=== PATIENT | female | born 1930 | race Caucasian/White ===

== ENCOUNTER 2018-10-23 22:48 | Inpatient (IN) | payer MEDICARE, MEDICAID ==
--- NOTE | 2018-10-23 23:10 | ED Physician Chart ---
ED Chief Complaint/HPI - Patient Information Date Seen:: 10/23/18 Time Seen:: 23:07 Chief Complaint:: agitation History of Present Illness:: 88 yr old female with agitation ED Review of Systems - Review of Systems General/Constitutional: No fever, No chills, No weight loss, No weakness, No diaphoresis, No edema, No loss of appetite Skin: No skin lesions, No rash, No bruising Head: No headache, No light-headedness Eyes: No loss of vision, No pain, No diplopia ENT: No earache, No nasal drainage, No sore throat, No tinnitus Neck: No neck pain, No swelling, No thyromegaly, No stiffness, No mass noted Cardio Vascular: No chest pain, No palpitations, No PND, No orthopnea, No edema Pulmonary: No SOB, No cough, No sputum, No wheezing GI: No nausea, No vomiting, No diarrhea, No pain, No melena, No hematochezia, No constipation, No hematemesis G/U: No dysuria, No frequency, No hematuria Musculoskeletal: No bone or joint pain, No back pain, No muscle pain Endocrine: No polyuria, No polydipsia Psychiatric: No prior psych history, No depression, No anxiety, No suicidal ideation Hematopoietic: No bruising, No lymphadenopathy Allergic/Immuno: No urticaria, No angioedema Neurological: No syncope, No focal symptoms, No weakness, No paresthesia, No headache, No seizure, No dizziness, No confusion, No vertigo ED Past Medical History - Past Medical History Past Medical History: Dementia ED Septic Shock - . Is Septic Shock (SBP<90, OR Lactate>4 mmol\L) present?: No
[2018-10-23 23:40] LABS: % LYMPHOCYTES 39.7 % (20.0-50.0); % MONOCYTES 9.3 % (2.0-10.0); BASOPHILE ABSOLUTE 0.1 Th/cumm (0-0.2); EOSINOPHILE ABSOLUTE 0.3 Th/cmm (0.1-0.4); HEMATOCRIT 32.5 % (41.0-60); HEMOGLOBIN 10.9 gm/dL (12-16); LYMPHOCYTE ABSOLUTE 2.4 Th/cmm (1.5-3.0); MEAN CELL VOLUME 92.8 fl (81-100); MEAN CORPUSCULAR HEMOGLOBIN 31.1 pg (27.0-31.0); MEAN CORPUSCULAR HGB CONC 33.5 pg (28.0-36.0); MEAN PLATELET VOLUME 7.4 fl; MONOCYTE ABSOLUTE 0.6 Th/cmm (0.3-1.0); NEUTROPHILE ABSOLUTE 2.6 Th/cmm (1.8-8.0); PLATELET COUNT 248 Th/cmm (150-400)
[2018-10-24 00:27] LABS: ALB/GLOB RATIO 1.3 (1.0-1.8); ALBUMIN 3.6 gm/dL (3.7-5.3); ALKALINE PHOSPHATASE 51 U/L (34-104); ANION GAP 12.2 (7.0-16.0); BILIRUBIN,TOTAL 0.2 mg/dL (0.3-1.0); BUN - UREA NITROGEN 31 mg/dL (7-25); CALCIUM SERUM 9.3 mg/dL (8.6-10.3); CHLORIDE 106 mEq/L (98-107); CREATININE - SERUM 0.8 mg/dL (0.6-1.2); GLUCOSE 97 mg/dL (70-105); POTASSIUM SERUM 4.2 mEq/L (3.5-5.1); SGOT 9 U/L (13-39); SGPT/ALT 10 U/L (7-52); SODIUM SERUM 139 mEq/L (136-145); TOTAL PROTEIN,SERUM 6.3 gm/dL (6.0-8.3)
[2018-10-24 01:32] VITALS: BP 161/90
[2018-10-24] MEDS ORDERED: Acetaminophen 500 MG TAB PO PRN (01:40)
[2018-10-24 05:32] LABS: CHOLESTEROL 178 mg/dL (<200); HDL -HIGH DENSITY LIPOPROTEIN 74 mg/dL (23-92); TRIGLYCERIDES 73 mg/dL (<150)
--- NOTE | 2018-10-24 08:10 | History & Physical ---
ADMIT DATE: 10/24/2018 DATE OF SERVICE: 10/24/2018 CHIEF COMPLAINT: Agitation. HISTORY OF PRESENT ILLNESS: This is an 88-year-old female who was originally admitted from [place] [facility] [place] and was transferred to [facility] Emergency Room due to increase in agitation and confusion. From the Emergency Room, medical workup was done and the patient was medically cleared, hence the patient was transferred to Psychiatric Unit. REVIEW OF SYSTEMS: GENERAL: This is an 88-year-old female. No fever. No weakness. HEENT: No headache. No dizziness. EYES: No eye pain, no blurring vision. NECK: No neck pain, no nuchal rigidity. CHEST: No chest pain. No palpitation. PULMONARY: No coughing, no shortness of breath. GASTROINTESTINAL: No abdominal pain, no constipation, no diarrhea. MUSCULOSKELETAL: No joint pain. No muscle pain. SOCIAL HISTORY: The patient lives in a [place] [facility] facility prior to hospitalization. PAST SURGICAL HISTORY: Unremarkable. FAMILY HISTORY: Unremarkable. PSYCHIATRIC HISTORY: Includes dementia. PAST MEDICAL HISTORY: Includes iron deficiency anemia, osteoarthritis, hypertension. PHYSICAL EXAMINATION: VITAL SIGNS: Temperature 97.3, heart rate 71, blood pressure 117/53, respirations of 18, 98% on room air. GENERAL: This is an 88-year-old female who appears as stated in no acute distress. HEENT: Head is atraumatic and normocephalic. EYES: Bilateral conjunctivae are clear. Bilateral pupils are equally round and reactive. NECK: Supple. No JVD. CARDIOVASCULAR: S1 and S2, without murmur. PULMONARY: Clear to auscultation. GASTROINTESTINAL: Soft and nontender without guarding. Positive bowel sounds. MUSCULOSKELETAL: No clubbing. No cyanosis noted. ASSESSMENT: 1. Psychosis. 2. Dementia. 3. Hypertension. 4. Osteoarthritis. 5. Iron deficiency anemia. PLAN: We will admit the patient to Psychiatric Unit. We will follow up with a psychiatrist to monitor the patient's condition and behavior. We will do medication reconciliation accordingly. Treatment plans were discussed with the patient's nurse. Treatment plans were discussed with Dr. John. JOB# [id number]
[2018-10-24] MEDS ORDERED: Non-Formulary Item 1 EA (Cranberry Fruit Concentrate [Cranberry] 450 MG) PO SCH (09:00)
[2018-10-24] MEDS: Benztropine 1 MG TAB PO SCH (09:33)
[2018-10-24] MEDS: Calcium Carb/Vit D 500 mg/200 U Tab PO SCH ×2 (09:33→16:15)
[2018-10-24] MEDS: Ferrous Sulfate 325 MG TAB PO SCH ×2 (09:34→16:15)
[2018-10-24] MEDS: Multivitamin w/ Minerals Tab PO SCH (09:35)
--- NOTE | 2018-10-24 09:35 | Psychiatric Evaluation ---
DATE OF SERVICE: 10/24/2018 DATE OF ADMISSION: 10/24/2018 REASON FOR ADMISSION: The patient was admitted for exacerbation of her psychotic symptoms and behavior. HISTORY OF PRESENT ILLNESS: The patient is an 88-year-old female who is well known to this publicity writer. The patient has been followed by this publicity writer for many years. The patient had prior hospitalization here before where the patient was very psychotic. The patient refused to take her medication because she believes that she is not sick and does not need any medication. The patient has been a resident of [facility] for many years. The patient has been doing reasonably well all these years on Prolixin. On the day of the admission, the staff called to report that the patient's condition has deteriorated where the patient has more episodes of yelling and screaming and reacting to her psychosis. Therefore, the staff requested for inpatient treatment to get her condition under control. Attempted to interview the patient while the patient was lying on her bed. The patient was heard yelling and screaming before entering the room. While trying to interview her, a female staff enter the room, the patient started yelling at her. The patient does not believe that the staff is a nurse. The patient has pressured speech as well as disorganized thought. The patient did not recognize this publicity writer. The patient stated that this publicity writer has another twin that is outside the room. The patient stated that this publicity writer is not her doctor. Since the patient is very psychotic at this time; therefore, unable to obtain much information from the patient. The patient has been guarded and not wanting to respond to questions. The patient would not give her name, age, or date. The patient would not say where she has been living prior to coming here. The patient would not say what happened, why she has to be here. PAST PSYCHIATRIC HISTORY: The patient has history of schizophrenia, chronic, paranoid type. SURGICAL HISTORY: Unable to obtain information. MEDICAL HISTORY: Polyosteoarthritis, essential hypertension, dysphagia, peripheral vascular disease. MEDICATIONS: Currently the patient is on Tylenol, Cogentin, calcium with vitamin C, Depakote 375 mg b.i.d., Colace, ferrous sulfate, Prolixin 10 mg p.o. at bedtime, Lamictal, Lopressor. SOCIAL HISTORY: Unable to obtain information at this time. MENTAL STATUS EXAMINATION: The patient appeared appropriate for stated age. The patient was guarded, uncooperative. The patient was easily agitated, yelling and screaming, and with pressured speech. It was difficult to understand what the patient was saying. MEMORY: Unable to assess the patient for immediate, short-term and long-term memory due to the patient being uncooperative with the interview. Unable to get the patient to interpret any of the proverbs. INSIGHTS: POOR jUDGMENT: Impaired Unable to assess the patient for concentration because the patient was uncooperative. Unable to assess the patient for orientation. The patient denied any auditory or visual hallucination nor delusion. DIAGNOSTIC IMPRESSION: AXIS I: Schizophrenia, chronic, paranoid type, in acute exacerbation. AXIS II: Deferred. AXIS III: Polyosteoarthritis, essential hypertension, dysphagia, peripheral vascular disease. AXIS IV: Medical and mental illnesses. AXIS V: Current 10, past year 25. PLAN: We will increase Prolixin to 10 mg p.o. q. 12 hours and monitor the patient's response to the medication. ESTIMATED LENGTH OF STAY: 7-10 days. DISCHARGE CRITERIA: Include improvement of her condition with continued compliance with medications and care. JOB# [id number] CANDACE
[2018-10-24] MEDS ORDERED: FLUPHENAZINE HCL 10 MG PO SCH (21:00)
[2018-10-25] MEDS: Benztropine 1 MG TAB PO SCH (10:00)
[2018-10-25] MEDS: Ferrous Sulfate 325 MG TAB PO SCH ×2 (10:00→16:28)
[2018-10-25] MEDS: Calcium Carb/Vit D 500 mg/200 U Tab PO SCH ×2 (10:00→16:28)
[2018-10-25] MEDS: Multivitamin w/ Minerals Tab PO SCH (10:00)
[2018-10-25] MEDS: FLUPHENAZINE HCL 2.5 MG/ML IM SCH (13:57)
--- NOTE | 2018-10-25 16:55 | Internal Medicine Prog Note ---
Internal Medicine Subjective - Subjective Patient seen and examined:: with staff Patient is:: awake, non-interactive Per staff patient has:: no adverse event Internal Medicine Objective - Results Result Diagrams: 10/23/18 23:25 10/23/18 23:25 Recent Labs: Laboratory Last Values WBC 6.0 Th/cmm (4.8-10.8) 10/23/18 23: RBC 3.50 Mil/cmm (3.80-5.20) L 10/23/18 23: Hgb 10.9 gm/dL (12-16) L 10/23/18 23:25 Hct 32.5 % (41.0-60) L 10/23/18 23: MCV 92.8 fl (81-100) 10/23/18 23: MCH 31.1 pg (27.0-31.0) H 10/23/18 23: MCHC Differential 33.5 pg (28.0-36.0) 10/23/18: RDW 13.0 % (11.5-20.0) 10/23/18 23: Plt Count 248 Th/cmm (150-400) 10/23/18 23:25 MPV 7.4 fl 10/23/18 23:25 Neutrophils % 45.0 % (40.0-80.0) 10/23/18 23: Lymphocytes % 39.7 % (20.0-50.0) 10/23/18 23: Monocytes % 9.3 % (2.0-10.0) 10/23/18 23: Eosinophils % 5.0 % (0.0-5.0) 10/23/18 23: Basophils % 1.0 % (0.0-2.0) 10/23/18 23:25 Sodium 139 mEq/L (136-145) 10/23/18 23:25 Potassium 4.2 mEq/L (3.5-5.1) 10/23/18 23:25 Chloride 106 mEq/L (98-107) 10/23/18 23:25 Carbon Dioxide 25.0 mEq/L (21.0-31.0) 10/23/18 23:25 Anion Gap 12.2 (7.0-16.0) 10/23/18 23:25 BUN 31 mg/dL (7-25) H 10/23/18 23:25 Creatinine 0.8 mg/dL (0.6-1.2) 10/23/18 23:25 Est GFR ( Amer) TNP 10/23/18 23:25 Est GFR (Non-Af Amer) TNP 10/23/18 23:25 BUN/Creatinine Ratio 38.8 10/23/18 23:25 Glucose 97 mg/dL (70-105) 10/23/18 23:25 Calcium 9.3 mg/dL (8.6-10.3) 10/23/18 23:25 Total Bilirubin 0.2 mg/dL (0.3-1.0) L 10/23/18 23:25 AST 9 U/L (13-39) L 10/23/18 23:25 ALT 10 U/L (7-52) 10/23/18 23:25 Alkaline Phosphatase 51 U/L (34-104) 10/23/18 23:25 Total Protein 6.3 gm/dL (6.0-8.3) 10/23/18 23:25 Albumin 3.6 gm/dL (3.7-5.3) L 10/23/18 23:25 Globulin 2.7 gm/dL 10/23/18 23:25 Albumin/Globulin Ratio 1.3 (1.0-1.8) 10/23/18 23:25 Triglycerides 73 mg/dL (<150) 10/24/18 01:45 Cholesterol 178 mg/dL (<200) 10/24/18 01:45 LDL Cholesterol Direct 88 mg/dL (75-193) 10/24/18 01:45 HDL Cholesterol 74 mg/dL (23-92) 10/24/18 01:45 - Physical Exam Vitals and I&O: Vital Signs Temp 96.8 F 10/25/18 14:00 Pulse 84 10/25/18 14:00 Resp 20 10/25/18 14:00 BP 133/56 10/25/18 14:00 Pulse Ox 97 10/25/18 14:00 Intake & Output 10/24/18 10/25/18 10/25/18 18:59 06:59 18:59 Intake Total 400 240 Balance 400 240 Intake: Oral 400 240 Other: # Voids 2 2 # Bowel Movements 1 0 Active Medications: Current Medications Acetaminophen (Tylenol) 650 mg PO Q4HR PRN PRN Reason: Pain or Fever >101 Stop: 12/23/18 01:39 Acetaminophen (Tylenol Extra Strength) 1,000 mg PO Q4HR PRN PRN Reason: Pain (Moderate) Stop: 12/23/18 01:39 Benztropine Mesylate (Cogentin) 3 mg PO DAILY [facility] Stop: 12/23/18 08:59 Last Admin: 10/25/18 10:00 Dose: Not Given Calcium/Vitamin D (Oscal W/Vitamin D) 1 tab PO BID [facility] Stop: 12/23/18 08:59 Last Admin: 10/25/18 16:28 Dose: Not Given Divalproex Sodium (Depakote Sprinkle) 375 mg PO BID [facility]; Protocol Stop: 12/23/18 08:59 Last Admin: 10/25/18 16:28 Dose: Not Given Docusate Sodium (Colace) 250 mg PO DAILY [facility] Stop: 12/23/18 08:59 Last Admin: 10/25/18 10:00 Dose: Not Given Ferrous Sulfate (Iron) 325 mg PO BID [facility] Stop: 12/23/18 08:59 Last Admin: 10/25/18 16:28 Dose: Not Given Fluphenazine Decanoate (Prolixin Deconate) 25 mg IM [id number] [facility]; Protocol Stop: 12/31/18 08:44 Fluphenazine HCl (Prolixin) 5 mg IM DAILY [facility]; Protocol Stop: 11/01/18 08:59 Last Admin: 10/25/18 13:57 Dose: 5 mg Lamotrigine (Lamictal) 25 mg PO DAILY [facility]; Protocol Stop: 12/23/18 08:59 Last Admin: 10/25/18 10:00 Dose: Not Given Metoprolol Tartrate (Lopressor) 50 mg PO DAILY [facility] Stop: 12/23/18 08:59 Last Admin: 10/25/18 10:35 Dose: Not Given General: demented, other (awake, non-verbal) HEENT: NC/AT Neck: Supple, No JVD Lungs: other (no acute respiratory distress) Cardiovascular: Normal S1, Normal S2 Abdomen: soft - Procedures Procedures: Procedures Procedure Code Date OTHER GROUP THERAPY 94.44 03/02/10 RECREATIONAL THERAPY 93.81 03/02/10 Internal Medicine Assmt/Plan - Assessment Assessment: #Psychosis #Dementia #HTN #OA #Iron deficiency Anemia - Plan Plan: Continue to keep patient Inpatient Pshychiatric Unit Monitor I/Os Monitor VS Monitor patient's condition and behavior. Continue current treatment. Continue to follow up Psych recs.
--- NOTE | 2018-10-25 21:49 | Progress Notes ---
DATE: 10/25/2018 SUBJECTIVE: The patient is sitting on the side of the bed, eating her breakfast. The patient was calmer this morning; however, her speech continued to be pressured and disorganized, difficult to understand. The patient reported that she is eating well. The patient started rambling, not able to follow what she was saying. The patient reported that she slept okay. When asked if she has been taking her medication, the patient started rambling, unable to get a coherent response to whether she has been taking her medications or not. OBJECTIVE: The patient continued to have pressured speech and disorganized thought. The patient appeared to be less agitated and more cooperative this morning. The staff reported that the patient had refused all her medications yesterday. The patient slept okay. The patient continued to be guarded and suspicious. ASSESSMENT: Schizophrenia, chronic paranoid type, in acute exacerbation. PLAN: We will change Prolixin from p.o. to IM and will eventually switch the patient back to Prolixin Decanoate. JOB# [id number]
--- NOTE | 2018-10-26 10:14 | Internal Medicine Prog Note ---
Internal Medicine Subjective - Subjective Service Date: 10/26/18 Patient seen and examined:: with staff Patient is:: awake, non-interactive, agitated Patient Complaints of:: other (Hx of Psychosis, Dementia, Schizophrenia.) Per staff patient has:: no adverse event, no episodes of fall Internal Medicine Objective - Results Result Diagrams: 10/23/18 23:25 10/23/18 23:25 Recent Labs: Laboratory Last Values WBC 6.0 Th/cmm (4.8-10.8) 10/23/18 23: RBC 3.50 Mil/cmm (3.80-5.20) L 10/23/18 23:25 Hgb 10.9 gm/dL (12-16) L 10/23/18 23:25 Hct 32.5 % (41.0-60) L 10/23/18 23:25 MCV 92.8 fl (81-100) 10/23/18 23: MCH 31.1 pg (27.0-31.0) H 10/23/18: MCHC Differential 33.5 pg (28.0-36.0) 10/23/18 23:25 RDW 13.0 % (11.5-20.0) 10/23/18 23: Plt Count 248 Th/cmm (150-400) 10/23/18 23:25 MPV 7.4 fl 10/23/18 23:25 Neutrophils % 45.0 % (40.0-80.0) 10/23/18 23:25 Lymphocytes % 39.7 % (20.0-50.0) 10/23/18 23: Monocytes % 9.3 % (2.0-10.0) 10/23/18 23:25 Eosinophils % 5.0 % (0.0-5.0) 10/23/18 23: Basophils % 1.0 % (0.0-2.0) 10/23/18 23:25 Sodium 139 mEq/L (136-145) 10/23/18 23:25 Potassium 4.2 mEq/L (3.5-5.1) 10/23/18 23:25 Chloride 106 mEq/L (98-107) 10/23/18 23:25 Carbon Dioxide 25.0 mEq/L (21.0-31.0) 10/23/18 23:25 Anion Gap 12.2 (7.0-16.0) 10/23/18 23:25 BUN 31 mg/dL (7-25) H 10/23/18 23:25 Creatinine 0.8 mg/dL (0.6-1.2) 10/23/18 23:25 Est GFR ( Amer) TNP 10/23/18 23:25 Est GFR (Non-Af Amer) TNP 10/23/18 23:25 BUN/Creatinine Ratio 38.8 10/23/18 23:25 Glucose 97 mg/dL (70-105) 10/23/18 23:25 Calcium 9.3 mg/dL (8.6-10.3) 10/23/18 23:25 Total Bilirubin 0.2 mg/dL (0.3-1.0) L 10/23/18 23:25 AST 9 U/L (13-39) L 10/23/18 23:25 ALT 10 U/L (7-52) 10/23/18 23:25 Alkaline Phosphatase 51 U/L (34-104) 10/23/18 23:25 Total Protein 6.3 gm/dL (6.0-8.3) 10/23/18 23:25 Albumin 3.6 gm/dL (3.7-5.3) L 10/23/18 23:25 Globulin 2.7 gm/dL 10/23/18 23:25 Albumin/Globulin Ratio 1.3 (1.0-1.8) 10/23/18 23:25 Triglycerides 73 mg/dL (<150) 10/24/18 01:45 Cholesterol 178 mg/dL (<200) 10/24/18 01:45 LDL Cholesterol Direct 88 mg/dL (75-193) 10/24/18 01:45 HDL Cholesterol 74 mg/dL (23-92) 10/24/18 01:45 - Physical Exam Vitals and I&O: Vital Signs Temp 0 F 10/26/18 06:20 Pulse 90 10/25/18 21:36 Resp 20 10/25/18 21:36 BP 151/68 10/25/18 21:36 Pulse Ox 96 10/25/18 21:36 Intake & Output 10/25/18 10/26/18 10/26/18 18:59 06:59 18:59 Intake Total 1440 120 Balance 1440 120 Intake: Oral 1080 120 Other 360 Other: # Voids 4 3 # Bowel Movements 0 0 Active Medications: Current Medications Acetaminophen (Tylenol) 650 mg PO Q4HR PRN PRN Reason: Pain or Fever >101 Stop: 12/23/18 01:39 Acetaminophen (Tylenol Extra Strength) 1,000 mg PO Q4HR PRN PRN Reason: Pain (Moderate) Stop: 12/23/18 01:39 Benztropine Mesylate (Cogentin) 3 mg PO DAILY [facility] Stop: 12/23/18 08:59 Last Admin: 10/25/18 10:00 Dose: Not Given Calcium/Vitamin D (Oscal W/Vitamin D) 1 tab PO BID [facility] Stop: 12/23/18 08:59 Last Admin: 10/25/18 16:28 Dose: Not Given Divalproex Sodium (Depakote Sprinkle) 375 mg PO BID [facility]; Protocol Stop: 12/23/18 08:59 Last Admin: 10/25/18 16:28 Dose: Not Given Docusate Sodium (Colace) 250 mg PO DAILY [facility] Stop: 12/23/18 08:59 Last Admin: 10/25/18 10:00 Dose: Not Given Ferrous Sulfate (Iron) 325 mg PO BID [facility] Stop: 12/23/18 08:59 Last Admin: 10/25/18 16:28 Dose: Not Given Fluphenazine Decanoate (Prolixin Deconate) 25 mg IM [id number] [facility]; Protocol Stop: 12/31/18 08:44 Fluphenazine HCl (Prolixin) 5 mg IM DAILY [facility]; Protocol Stop: 11/01/18 08:59 Last Admin: 10/25/18 13:57 Dose: 5 mg Lamotrigine (Lamictal) 25 mg PO DAILY [facility]; Protocol Stop: 12/23/18 08:59 Last Admin: 10/25/18 10:00 Dose: Not Given Metoprolol Tartrate (Lopressor) 50 mg PO DAILY [facility] Stop: 12/23/18 08:59 Last Admin: 10/25/18 10:35 Dose: Not Given Physical Exam: 88 y/o female patient has been agitated and has hx of Psychosis, Dementia, Schizophrenia, Htn, OA and was found to have Anemia. General: weak, demented, other (awake, non-verbal) HEENT: NC/AT Neck: Supple, No JVD Lungs: other (no acute respiratory distress) Cardiovascular: Normal S1, Normal S2 Abdomen: soft, non-tender Extremities: clear Neurological: other (Altered mental status.) - Procedures Procedures: Procedures Procedure Code Date OTHER GROUP THERAPY 94.44 03/02/10 RECREATIONAL THERAPY 93.81 03/02/10 Internal Medicine Assmt/Plan - Assessment Assessment: Psychosis. Iron-deficiency Anemia. HTN. Schizophrenia. Dementia. OA. - Plan Plan: Continuation of care. Monitor Vitals and Labs. Continue present meds as directed. Fall precaution. Pain management. Psych management per psych. Continue present care management. Nutritional Asmnt/Malnutr-PDOC - Dietary Evaluation Malnutrition Findings (Please click <Entered> for more info): see orders.
[2018-10-26] MEDS: Benztropine 1 MG TAB PO SCH (10:52)
[2018-10-26] MEDS: Ferrous Sulfate 325 MG TAB PO SCH ×2 (10:52→17:21)
[2018-10-26] MEDS: Calcium Carb/Vit D 500 mg/200 U Tab PO SCH ×2 (10:52→17:21)
[2018-10-26] MEDS: FLUPHENAZINE HCL 2.5 MG/ML IM SCH (10:52)
[2018-10-26] MEDS: Multivitamin w/ Minerals Tab PO SCH (10:53)
--- NOTE | 2018-10-26 16:55 | Progress Notes ---
DATE: 10/26/2018 SUBJECTIVE: The patient is resting in bed with her eyes closed. The patient responded to verbal stimuli. The patient appeared calmer and her speech appeared to be more normal, not pressured, disorganized like yesterday. The patient indicated that she had her breakfast and that she slept okay. Suddenly the patient stated "I am a prisoner." When asked what she meant by that, she pointed to this music writer and said that she is this music writer's prisoner. When asked if her family has been here to visit, the patient shook her head. The patient suddenly said that she is 7 years old. OBJECTIVE: The patient appeared to be calmer today with more normal speech. However, the patient is not very verbal. The patient continued to be delusional. Staff reported that the patient has been doing better, less agitated and her speech appeared to be more normal, not rambling and pressured like the last 2 days. ASSESSMENT: Schizophrenia, chronic paranoid type. PLAN: We will continue the patient on Prolixin IM and eventually switch to Prolixin Decanoate. If the patient continued to be doing well on current Prolixin IM, consider discharging the patient in the next 3-4 days to continue with Prolixin IM at the facility. JOB# [id number]
--- NOTE | 2018-10-26 23:13 | Consultation ---
DATE OF CONSULTATION: 10/26/2018 REFERRING PHYSICIAN: Moi Merino MD TYPE OF CONSULTATION: Psychology. HISTORY OF PRESENT ILLNESS: The patient is an 88-year-old female. The following is by record review and by the patient's self report. The patient is seen and evaluated. Case is discussed with staff. The patient is being admitted due to exacerbation of psychotic symptoms and noncompliance with medication. The patient is known to this fiction and nonfiction prose writer from previous hospitalizations. The patient has had similar reasons for her previous admissions i.e. noncompliance with care as well as episodes of yelling and screaming. The staff at her facility reports that the patient has been yelling at the staff and that the patient was reporting that the doctors that are treating her are not her doctors. The patient presents as possibly responding to internal stimuli. The patient did not answer questions about experiencing suicidal ideation, plan, or intention. The patient is generally guarded and not very responsive to the clinical questions or providing much information. PAST MEDICAL HISTORY: Please see history and physical by Dr. John. PAST PSYCHIATRIC HISTORY: The patient has a long history of schizophrenia, chronic paranoid type. The patient is under the care of a psychiatrist at her placement. The patient has had multiple previous hospitalizations. SUBSTANCE ABUSE HISTORY: The patient declined to answer any of these questions. PSYCHOSOCIAL HISTORY: The patient did not answer questions about occupational or educational history or voodoo affiliation. She did not answer questions about family relationships. The patient did state that she has a son, Javon, who is involved in her care and someone named Bibiana. The patient did not answer the question whether these are her children or what relationship she has with them other friends or family involved in her care. The patient did not answer questions about history of physical or sexual abuse. The patient did not answer the question about current legal problems. She is a resident of [facility]. MENTAL STATUS EXAMINATION: The patient appears to be her stated age. The patient's attitude is guarded and uncooperative. Speech is delayed and at times pressured and loud. The patient was not responding relevantly to the clinical questions. Eye contact is avoidant. Mood is irritable. Affect is constricted. Thought process shows to be confused and she is responding to internal stimuli. The patient did not answer questions about experiencing auditory or visual hallucinations or delusions. There is evidence of paranoid ideation present. The patient did not answer the question about experiencing suicidal ideation with a plan or intention or a wish to . The patient's behavior has been easily agitated with yelling episodes and difficult to deescalate. Impulse control is inadequate. Concentration is impaired. Sensorium is alert and oriented to self only. The patient did not participate in the memory assessment. The patient did not participate in the interpretation of proverbs. Insight is impaired. Judgment is impaired. DIAGNOSTIC IMPRESSION: AXIS I: History of schizophrenia, chronic paranoid type, in acute exacerbation. AXIS II: Deferred. AXIS III: Per Dr. John. TREATMENT PLAN: The patient has been seen by Dr. Merino for psychiatric evaluation and for the management of the patient's psychotropic medications. According to the the attending psychiatrist, the patient was started on Prolixin and is being monitored in response to the medication. We will provide supportive psychotherapy to include reality orientation, differentiation, and integration. We will provide motivational enhancement for the patient to become compliant and stay compliant with all aspects of her care and treatment. We will provide de-escalation and limit setting as well as cognitive and behavioral redirection. We will encourage the patient to demonstrate emotional and self-regulation and to follow through with staff direction. We will encourage the patient to verbalize her concerns versus acting out. We will provide coping strategies for phase of life issues as well as for chronic severe mental illness. Thank you, Dr. Merino for this consult and the opportunity to participate in this patient's care. JOB# [id number] CANDACE
[2018-10-27] MEDS: Calcium Carb/Vit D 500 mg/200 U Tab PO SCH ×2 (08:30→17:10)
[2018-10-27] MEDS: Benztropine 1 MG TAB PO SCH (08:30)
[2018-10-27] MEDS: Ferrous Sulfate 325 MG TAB PO SCH ×2 (08:30→17:10)
[2018-10-27] MEDS: Multivitamin w/ Minerals Tab PO SCH (08:30)
[2018-10-27] MEDS: FLUPHENAZINE HCL 2.5 MG/ML IM SCH (10:03)
--- NOTE | 2018-10-27 19:26 | Internal Medicine Prog Note ---
Internal Medicine Subjective - Subjective Service Date: 10/27/18 Patient is:: awake, non-interactive, agitated Patient Complaints of:: other (Hx of Psychosis, Dementia, Schizophrenia.) Per staff patient has:: no adverse event, no episodes of fall Internal Medicine Objective - Results Result Diagrams: 10/23/18 23:25 10/23/18 23:25 Recent Labs: Laboratory Last Values WBC 6.0 Th/cmm (4.8-10.8) 10/23/18 23: RBC 3.50 Mil/cmm (3.80-5.20) L 10/23/18 23:25 Hgb 10.9 gm/dL (12-16) L 10/23/18 23:25 Hct 32.5 % (41.0-60) L 10/23/18 23:25 MCV 92.8 fl (81-100) 10/23/18 23:25 MCH 31.1 pg (27.0-31.0) H 10/23/18 23: MCHC Differential 33.5 pg (28.0-36.0) 10/23/18 23:25 RDW 13.0 % (11.5-20.0) 10/23/18 23: Plt Count 248 Th/cmm (150-400) 10/23/18 23:25 MPV 7.4 fl 10/23/18 23:25 Neutrophils % 45.0 % (40.0-80.0) 10/23/18 23:25 Lymphocytes % 39.7 % (20.0-50.0) 10/23/18 23: Monocytes % 9.3 % (2.0-10.0) 10/23/18 23:25 Eosinophils % 5.0 % (0.0-5.0) 10/23/18 23: Basophils % 1.0 % (0.0-2.0) 10/23/18 23:25 Sodium 139 mEq/L (136-145) 10/23/18 23:25 Potassium 4.2 mEq/L (3.5-5.1) 10/23/18 23:25 Chloride 106 mEq/L (98-107) 10/23/18 23:25 Carbon Dioxide 25.0 mEq/L (21.0-31.0) 10/23/18 23:25 Anion Gap 12.2 (7.0-16.0) 10/23/18 23:25 BUN 31 mg/dL (7-25) H 10/23/18 23:25 Creatinine 0.8 mg/dL (0.6-1.2) 10/23/18 23:25 Est GFR ( Amer) TNP 10/23/18 23:25 Est GFR (Non-Af Amer) TNP 10/23/18 23:25 BUN/Creatinine Ratio 38.8 10/23/18 23:25 Glucose 97 mg/dL (70-105) 10/23/18 23:25 Calcium 9.3 mg/dL (8.6-10.3) 10/23/18 23:25 Total Bilirubin 0.2 mg/dL (0.3-1.0) L 10/23/18 23:25 AST 9 U/L (13-39) L 10/23/18 23:25 ALT 10 U/L (7-52) 10/23/18 23:25 Alkaline Phosphatase 51 U/L (34-104) 10/23/18 23:25 Total Protein 6.3 gm/dL (6.0-8.3) 10/23/18 23:25 Albumin 3.6 gm/dL (3.7-5.3) L 10/23/18 23:25 Globulin 2.7 gm/dL 10/23/18 23:25 Albumin/Globulin Ratio 1.3 (1.0-1.8) 10/23/18 23:25 Triglycerides 73 mg/dL (<150) 10/24/18 01:45 Cholesterol 178 mg/dL (<200) 10/24/18 01:45 LDL Cholesterol Direct 88 mg/dL (75-193) 10/24/18 01:45 HDL Cholesterol 74 mg/dL (23-92) 10/24/18 01:45 - Physical Exam Vitals and I&O: Vital Signs Temp 0 F 10/27/18 06:26 Pulse 87 10/26/18 20:27 Resp 19 10/27/18 08:00 BP 147/76 10/26/18 20:27 Pulse Ox 96 10/26/18 20:27 Intake & Output 10/27/18 10/27/18 10/28/18 06:59 18:59 06:59 Intake Total 240 Balance 240 Intake: Oral 240 Other: # Voids 3 2 # Bowel Movements 0 0 Active Medications: Current Medications Acetaminophen (Tylenol) 650 mg PO Q4HR PRN PRN Reason: Pain or Fever >101 Stop: 12/23/18 01:39 Acetaminophen (Tylenol Extra Strength) 1,000 mg PO Q4HR PRN PRN Reason: Pain (Moderate) Stop: 12/23/18 01:39 Benztropine Mesylate (Cogentin) 3 mg PO DAILY [facility] Stop: 12/23/18 08:59 Last Admin: 10/27/18 08:30 Dose: Not Given Calcium/Vitamin D (Oscal W/Vitamin D) 1 tab PO BID [facility] Stop: 12/23/18 08:59 Last Admin: 10/27/18 17:10 Dose: Not Given Divalproex Sodium (Depakote Sprinkle) 375 mg PO BID [facility]; Protocol Stop: 12/23/18 08:59 Last Admin: 10/27/18 17:10 Dose: Not Given Docusate Sodium (Colace) 250 mg PO DAILY [facility] Stop: 12/23/18 08:59 Last Admin: 10/27/18 08:30 Dose: Not Given Ferrous Sulfate (Iron) 325 mg PO BID [facility] Stop: 12/23/18 08:59 Last Admin: 10/27/18 17:10 Dose: Not Given Fluphenazine Decanoate (Prolixin Deconate) 25 mg IM [id number] [facility]; Protocol Stop: 12/31/18 08:44 Fluphenazine HCl (Prolixin) 10 mg IM DAILY [facility]; Protocol Stop: 11/03/18 08:59 Last Admin: 10/27/18 10:03 Dose: Not Given Lamotrigine (Lamictal) 25 mg PO DAILY [facility]; Protocol Stop: 12/23/18 08:59 Last Admin: 10/27/18 08:29 Dose: Not Given Metoprolol Tartrate (Lopressor) 50 mg PO DAILY [facility] Stop: 12/23/18 08:59 Last Admin: 10/27/18 08:30 Dose: Not Given General: weak, demented, other (awake, non-verbal) HEENT: NC/AT Neck: Supple, No JVD Lungs: other (no acute respiratory distress) Cardiovascular: Normal S1, Normal S2 Abdomen: soft, non-tender Extremities: clear Neurological: other (Altered mental status.) - Procedures Procedures: Procedures Procedure Code Date OTHER GROUP THERAPY 94.44 03/02/10 RECREATIONAL THERAPY 93.81 03/02/10 Internal Medicine Assmt/Plan - Assessment Assessment: #Psychosis #Dementia #HTN #OA #Iron deficiency Anemia - Plan Plan: CPM
--- NOTE | 2018-10-27 23:36 | Progress Notes ---
DATE: 10/27/2018 SUBJECTIVE: The patient was up sitting in the wheelchair in front of her room. As soon as the patient saw this typewriter aligner, she acted happy. She stated that she wanted to get out of here. When asked where to, where was she prior to coming here, the patient could not give the name of the facility. When asked what city that facility is at, the patient stated this city. The patient became more agitated when asked if she had her breakfast. The patient stated "No". The patient stated that she does not want to be questioned anymore. The patient stated that she just wanted to get out of here. When I asked if her family came to see her, the patient stated no. When asked again if she would eat her breakfast before she leaves this place, the patient stated no. OBJECTIVE: The patient is more easily agitated this morning. The patient continued to be quite delusional. The staff reported that the patient called her "Devil". The patient refused to eat this morning. Staff reported that the patient slept about 4 hours, but the rest of the time she just stayed in bed. ASSESSMENT: Schizophrenia, chronic paranoid type. PLAN: I will increase Prolixin IM to 10 mg q.p.m. for the next 5 days before giving the Prolixin Decanoate. We will monitor the patient's response to the increased dose of Prolixin IM. JOB# [id number] MTDD
[2018-10-28] MEDS: FLUPHENAZINE HCL 2.5 MG/ML IM SCH (08:58)
[2018-10-28] MEDS: Benztropine 1 MG TAB PO SCH (09:24)
[2018-10-28] MEDS: Calcium Carb/Vit D 500 mg/200 U Tab PO SCH ×2 (09:24→17:41)
[2018-10-28] MEDS: Ferrous Sulfate 325 MG TAB PO SCH ×2 (09:25→17:42)
[2018-10-28] MEDS: Multivitamin w/ Minerals Tab PO SCH (09:25)
--- NOTE | 2018-10-28 12:59 | Internal Medicine Prog Note ---
Internal Medicine Subjective - Subjective Service Date: 10/28/18 Patient seen and examined:: with staff Patient is:: awake, non-interactive, agitated Patient Complaints of:: other (Hx of Psychosis, Dementia, Schizophrenia.) Per staff patient has:: no adverse event, no episodes of fall Internal Medicine Objective - Results Result Diagrams: 10/23/18 23:25 10/23/18 23:25 Recent Labs: Laboratory Last Values WBC 6.0 Th/cmm (4.8-10.8) 10/23/18 23: RBC 3.50 Mil/cmm (3.80-5.20) L 10/23/18 23:25 Hgb 10.9 gm/dL (12-16) L 10/23/18 23:25 Hct 32.5 % (41.0-60) L 10/23/18 23:25 MCV 92.8 fl (81-100) 10/23/18 23: MCH 31.1 pg (27.0-31.0) H 10/23/18: MCHC Differential 33.5 pg (28.0-36.0) 10/23/18 23:25 RDW 13.0 % (11.5-20.0) 10/23/18 23: Plt Count 248 Th/cmm (150-400) 10/23/18 23:25 MPV 7.4 fl 10/23/18 23:25 Neutrophils % 45.0 % (40.0-80.0) 10/23/18 23:25 Lymphocytes % 39.7 % (20.0-50.0) 10/23/18 23: Monocytes % 9.3 % (2.0-10.0) 10/23/18 23:25 Eosinophils % 5.0 % (0.0-5.0) 10/23/18 23: Basophils % 1.0 % (0.0-2.0) 10/23/18 23:25 Sodium 139 mEq/L (136-145) 10/23/18 23:25 Potassium 4.2 mEq/L (3.5-5.1) 10/23/18 23:25 Chloride 106 mEq/L (98-107) 10/23/18 23:25 Carbon Dioxide 25.0 mEq/L (21.0-31.0) 10/23/18 23:25 Anion Gap 12.2 (7.0-16.0) 10/23/18 23:25 BUN 31 mg/dL (7-25) H 10/23/18 23:25 Creatinine 0.8 mg/dL (0.6-1.2) 10/23/18 23:25 Est GFR ( Amer) TNP 10/23/18 23:25 Est GFR (Non-Af Amer) TNP 10/23/18 23:25 BUN/Creatinine Ratio 38.8 10/23/18 23:25 Glucose 97 mg/dL (70-105) 10/23/18 23:25 Calcium 9.3 mg/dL (8.6-10.3) 10/23/18 23:25 Total Bilirubin 0.2 mg/dL (0.3-1.0) L 10/23/18 23:25 AST 9 U/L (13-39) L 10/23/18 23:25 ALT 10 U/L (7-52) 10/23/18 23:25 Alkaline Phosphatase 51 U/L (34-104) 10/23/18 23:25 Total Protein 6.3 gm/dL (6.0-8.3) 10/23/18 23:25 Albumin 3.6 gm/dL (3.7-5.3) L 10/23/18 23:25 Globulin 2.7 gm/dL 10/23/18 23:25 Albumin/Globulin Ratio 1.3 (1.0-1.8) 10/23/18 23:25 Triglycerides 73 mg/dL (<150) 10/24/18 01:45 Cholesterol 178 mg/dL (<200) 10/24/18 01:45 LDL Cholesterol Direct 88 mg/dL (75-193) 10/24/18 01:45 HDL Cholesterol 74 mg/dL (23-92) 10/24/18 01:45 - Physical Exam Vitals and I&O: Vital Signs Temp 0 F 10/27/18 20:00 Pulse 87 10/26/18 20:27 Resp 18 10/27/18 20:00 BP 147/76 10/26/18 20:27 Pulse Ox 96 10/26/18 20:27 Intake & Output 10/27/18 10/28/18 10/28/18 18:59 06:59 18:59 Intake Total 300 Balance 300 Intake: Oral 300 Other: # Voids 2 1 # Bowel Movements 0 0 Active Medications: Current Medications Acetaminophen (Tylenol) 650 mg PO Q4HR PRN PRN Reason: Mild Pain or Fever >101 Stop: 12/23/18 01:39 Acetaminophen (Tylenol Extra Strength) 1,000 mg PO Q4HR PRN PRN Reason: Pain (Moderate) Stop: 12/23/18 01:39 Benztropine Mesylate (Cogentin) 3 mg PO DAILY [facility] Stop: 12/23/18 08:59 Last Admin: 10/28/18 09:24 Dose: Not Given Calcium/Vitamin D (Oscal W/Vitamin D) 1 tab PO BID [facility] Stop: 12/23/18 08:59 Last Admin: 10/28/18 09:24 Dose: Not Given Divalproex Sodium (Depakote Sprinkle) 375 mg PO BID [facility]; Protocol Stop: 12/23/18 08:59 Last Admin: 10/28/18 09:24 Dose: Not Given Docusate Sodium (Colace) 250 mg PO DAILY [facility] Stop: 12/23/18 08:59 Last Admin: 10/28/18 09:24 Dose: Not Given Ferrous Sulfate (Iron) 325 mg PO BID [facility] Stop: 12/23/18 08:59 Last Admin: 10/28/18 09:25 Dose: Not Given Fluphenazine Decanoate (Prolixin Deconate) 25 mg IM [id number] [facility]; Protocol Stop: 12/31/18 08:44 Fluphenazine HCl (Prolixin) 10 mg IM DAILY [facility]; Protocol Stop: 11/03/18 08:59 Last Admin: 10/28/18 08:58 Dose: 10 mg Lamotrigine (Lamictal) 25 mg PO DAILY [facility]; Protocol Stop: 12/23/18 08:59 Last Admin: 10/28/18 09:25 Dose: Not Given Metoprolol Tartrate (Lopressor) 50 mg PO DAILY [facility] Stop: 12/23/18 08:59 Last Admin: 10/28/18 09:25 Dose: Not Given Physical Exam: 88 y/o female patient is easily agitated and has hx of Psychosis, Dementia, Schizophrenia, Htn, OA and was found to have Anemia. General: weak, demented, other (awake, non-verbal) HEENT: NC/AT Neck: Supple, No JVD Lungs: other (no acute respiratory distress) Cardiovascular: Normal S1, Normal S2 Abdomen: soft, non-tender Extremities: clear Neurological: other (Altered mental status.) - Procedures Procedures: Procedures Procedure Code Date OTHER GROUP THERAPY 94.44 03/02/10 RECREATIONAL THERAPY 93.81 03/02/10 Internal Medicine Assmt/Plan - Assessment Assessment: Psychosis. Iron-deficiency Anemia. HTN. Schizophrenia. Dementia. OA. - Plan Plan: Continuation of care. Monitor Vitals and Labs. Continue present meds as directed. Fall precaution. Pain management. Psych management per psych. Continue present care management. Nutritional Asmnt/Malnutr-PDOC - Dietary Evaluation Malnutrition Findings (Please click <Entered> for more info): see orders.
--- NOTE | 2018-10-29 02:52 | Progress Notes ---
DATE: 10/28/2018 SUBJECTIVE: The patient was resting on the bed with her eyes closed. When knocked on the door the patient opened her eyes. The patient appeared pleasant and smiling when approached. The patient stated that she did not have breakfast or lunch. The patient stated that she had some ice cream. When asked why she did not want to eat, the patient stated that she wants to eat when she gets home. The patient stated that she wanted to eat some hot cereal. When told that this chief writer can get her hot cereal right now, the patient declined. The patient insisted that she will eat when she gets home. When asked if she had taken her medications, again the patient stated that she does not take medication here, she will take it when she gets home. The patient appeared to be less psychotic today. Her speech appeared more normal. The patient does not recognize this chief writer. OBJECTIVE: The patient appears calmer with more normal speech. The patient continued to be delusional. The staff reported that the patient slept reasonably well. The patient refused to eat or take her medication. The staff was able to get a copy of her [employer] papers from the facility; therefore, the staff was able to give the patient Prolixin IM this morning. ASSESSMENT: Schizophrenia, chronic paranoid type. PLAN: We will change the Prolixin to 9 p.m. We will continue the patient on current medications and monitor the patient's response to the medication. If the patient continued to be doing well on current medication, we will consider discharging the patient in the next couple of days. JOB# [id number] CANDACE
[2018-10-29] MEDS: Calcium Carb/Vit D 500 mg/200 U Tab PO SCH ×2 (09:00→09:20)
[2018-10-29] MEDS: Ferrous Sulfate 325 MG TAB PO SCH ×2 (09:00→09:20)
[2018-10-29] MEDS: Multivitamin w/ Minerals Tab PO SCH ×3 (09:00→14:05)
[2018-10-29] MEDS: Benztropine 1 MG TAB PO SCH ×2 (09:00→09:18)
--- NOTE | 2018-10-29 17:49 | Internal Medicine Prog Note ---
Internal Medicine Subjective - Subjective Service Date: 10/29/18 Patient is:: awake, non-interactive, agitated Patient Complaints of:: other (Hx of Psychosis, Dementia, Schizophrenia.) Per staff patient has:: no adverse event, no episodes of fall Internal Medicine Objective - Results Result Diagrams: 10/23/18 23:25 10/23/18 23:25 Recent Labs: Laboratory Last Values WBC 6.0 Th/cmm (4.8-10.8) 10/23/18 23:25 RBC 3.50 Mil/cmm (3.80-5.20) L 10/23/18 23:25 Hgb 10.9 gm/dL (12-16) L 10/23/18 23:25 Hct 32.5 % (41.0-60) L 10/23/18 23:25 MCV 92.8 fl (81-100) 10/23/18 23:25 MCH 31.1 pg (27.0-31.0) H 10/23/18 23: MCHC Differential 33.5 pg (28.0-36.0) 10/23/18 23:25 RDW 13.0 % (11.5-20.0) 10/23/18 23:25 Plt Count 248 Th/cmm (150-400) 10/23/18 23:25 MPV 7.4 fl 10/23/18 23:25 Neutrophils % 45.0 % (40.0-80.0) 10/23/18 23:25 Lymphocytes % 39.7 % (20.0-50.0) 10/23/18 23: Monocytes % 9.3 % (2.0-10.0) 10/23/18 23:25 Eosinophils % 5.0 % (0.0-5.0) 10/23/18 23: Basophils % 1.0 % (0.0-2.0) 10/23/18 23:25 Sodium 139 mEq/L (136-145) 10/23/18 23:25 Potassium 4.2 mEq/L (3.5-5.1) 10/23/18 23:25 Chloride 106 mEq/L (98-107) 10/23/18 23:25 Carbon Dioxide 25.0 mEq/L (21.0-31.0) 10/23/18 23:25 Anion Gap 12.2 (7.0-16.0) 10/23/18 23:25 BUN 31 mg/dL (7-25) H 10/23/18 23:25 Creatinine 0.8 mg/dL (0.6-1.2) 10/23/18 23:25 Est GFR ( Amer) TNP 10/23/18 23:25 Est GFR (Non-Af Amer) TNP 10/23/18 23:25 BUN/Creatinine Ratio 38.8 10/23/18 23:25 Glucose 97 mg/dL (70-105) 10/23/18 23:25 Calcium 9.3 mg/dL (8.6-10.3) 10/23/18 23:25 Total Bilirubin 0.2 mg/dL (0.3-1.0) L 10/23/18 23:25 AST 9 U/L (13-39) L 10/23/18 23:25 ALT 10 U/L (7-52) 10/23/18 23:25 Alkaline Phosphatase 51 U/L (34-104) 10/23/18 23:25 Total Protein 6.3 gm/dL (6.0-8.3) 10/23/18 23:25 Albumin 3.6 gm/dL (3.7-5.3) L 10/23/18 23:25 Globulin 2.7 gm/dL 10/23/18 23:25 Albumin/Globulin Ratio 1.3 (1.0-1.8) 10/23/18 23:25 Triglycerides 73 mg/dL (<150) 10/24/18 01:45 Cholesterol 178 mg/dL (<200) 10/24/18 01:45 LDL Cholesterol Direct 88 mg/dL (75-193) 10/24/18 01:45 HDL Cholesterol 74 mg/dL (23-92) 10/24/18 01:45 - Physical Exam Vitals and I&O: Vital Signs Temp 0 F 10/27/18 20:00 Pulse 87 10/26/18 20:27 Resp 19 10/28/18 20:00 BP 147/76 10/26/18 20:27 Pulse Ox 96 10/26/18 20:27 Intake & Output 10/28/18 10/29/18 10/29/18 18:59 06:59 18:59 Intake Total 550 Balance 550 Intake: Oral 550 Active Medications: Current Medications Acetaminophen (Tylenol) 650 mg PO Q4HR PRN PRN Reason: Mild Pain or Fever >101 Stop: 12/23/18 01:39 Acetaminophen (Tylenol Extra Strength) 1,000 mg PO Q4HR PRN PRN Reason: Pain (Moderate) Stop: 12/23/18 01:39 Benztropine Mesylate (Cogentin) 3 mg PO DAILY [facility] Stop: 12/23/18 08:59 Last Admin: 10/29/18 09:00 Dose: Not Given Calcium/Vitamin D (Oscal W/Vitamin D) 1 tab PO BID [facility] Stop: 12/23/18 08:59 Last Admin: 10/29/18 09:00 Dose: Not Given Divalproex Sodium (Depakote Sprinkle) 375 mg PO BID [facility]; Protocol Stop: 12/23/18 08:59 Last Admin: 10/29/18 09:00 Dose: Not Given Docusate Sodium (Colace) 250 mg PO DAILY [facility] Stop: 12/23/18 08:59 Last Admin: 10/29/18 09:00 Dose: Not Given Ferrous Sulfate (Iron) 325 mg PO BID [facility] Stop: 12/23/18 08:59 Last Admin: 10/29/18 09:00 Dose: Not Given Fluphenazine Decanoate (Prolixin Deconate) 25 mg IM [id number] [facility]; Protocol Stop: 12/31/18 08:44 Fluphenazine HCl (Prolixin) 10 mg IM HS [facility]; Protocol Stop: 12/28/18 20:59 Lamotrigine (Lamictal) 25 mg PO DAILY [facility]; Protocol Stop: 12/23/18 08:59 Last Admin: 10/29/18 09:00 Dose: Not Given Metoprolol Tartrate (Lopressor) 50 mg PO DAILY [facility] Stop: 12/23/18 08:59 Last Admin: 10/29/18 09:00 Dose: Not Given General: weak, demented, other (awake, non-verbal) HEENT: NC/AT Neck: Supple, No JVD Lungs: other (no acute respiratory distress) Cardiovascular: Normal S1, Normal S2 Abdomen: soft, non-tender Extremities: clear Neurological: other (Altered mental status.) - Procedures Procedures: Procedures Procedure Code Date OTHER GROUP THERAPY 94.44 03/02/10 RECREATIONAL THERAPY 93.81 03/02/10 Internal Medicine Assmt/Plan - Assessment Assessment: #Psychosis #Dementia #HTN #OA #Iron deficiency Anemia - Plan Plan: CPM Nutritional Asmnt/Malnutr-PDOC - Dietary Evaluation Malnutrition Findings (Please click <Entered> for more info): Nutritional Asmnt/Malnutrition Start: 10/29/18 16: 03 Text: Status: Active Freq: Protocol: Document 10/29/18 16:03 ELIESER (Rec: 10/29/18 16:09 ELIESER [id number]) Nutritional Asmnt/Malnutrition Patient General Information Nutritional Screening Moderate Risk Diagnosis PSYCHOSIS, NOS Pertinent Medical Hx/Surgical Hx HTN, DM, DEMENTIA, ATHRITUS, YTI, BIPOLAR PSYCHOSIS, SEIZURES Subjective Information PT SEEN LYING DOWN ON BED AT TIME FO VISIT. PT IS CONFUSED AND UNABLE TO ANSWER QUESTIONS . PER AIR SAMPLING AND MONITORING (ELLIOT), PT REFUSED TO EAT BREAKFAST AND LUNCH BUT DRINK WATER ONLY. NO FOOD TEXTURE CONCERN REPORTED. OFFERED OPTION ON ORAL SUPPLEMENT, MAY CONSIDER ENSURE TID IF PO INTAKE DOES NOT IMPROVE IN 3-5 DAYS MODERATE RISK INITIAL NUTRITION SCREENING FOR BRANDO SCORE 17. PATIENT IS A 88 Y/O FEMALE ADMITTED ON 10/24/2018 WITH PSYCHOSIS, NOS. BMI: 25.0 KG/M2 (OVERWEIGHT) IBW: 56.8 KG %IBW: 120% CURRENT DIET: 2 GRAM NA, CHOPPED BRANDO SCORE: 17 SKIN: INTACT LAST BM: 10/26 X 1 ESTIMATED NEEDS ARE BASED ON ACTUAL BODY WEIGHT 68 KG FOR WEIGHT MAINTENANCE. CALORIES: 7312-0553 KCAL/DAY ( 25-30 KCAL/KG) PROTEIN: 54-68 GM PRO/DAY (0.8 -1 G/KG) FLUID: 4023-6085 ML/DAY (1 ML/ KCAL) Current Diet Order/ Nutrition Support 2 GRAM NA, CHOPPED Pertinent Medications OSCAL W/VIT D, COLACE, IRON, PROLIXIN, LOPRESSOR Pertinent Labs 10/23 BUN 31, ALB 3.6 Nutritional Hx/Data Height 5 ft 5 in Height (Calculated Centimeters) 165.1 Current Weight (lbs) 150 lb Weight (Calculated Kilograms) 68.0 Weight (Calculated Grams) 22210.9 [place] Body Weight 56.8 % [place] Body Weight 120 Body Mass Index (BMI) 25.0 Weight Status Overweight GI Symptoms GI Symptoms None Last BM 10/26 Difficult in: None Skin Integrity/Comment: BRANDO 17, SKIN INTACT Current %PO Negligible < 25% Estimated Nutritional Goals BEE in Kcals: Using Current wt Calories/Kcals/Kg 25-30 Kcals Calculated 9342-3886 Protein: Using Current wt Protein g/k.8-1 Protein Calculated 54-68 Fluid: ml 1.7-2 L/DAY (1 ML/KCAL) Nutritional Problem 1. Problem Problem INADEQUATE ORAL INTAKE Etiology LOW APPETITE Signs/Symptoms: PO INTAKE 0% ON 10/28 Intervention/Recommendation Comments 1. Continue with 2 gram NA diet with chopped texture as ordered. Will add Ensure clear in dinner to increase oral intake if po intake does not improve 2. Monitor PO intake, wt, labs and skin integrity RD TO FOLLOW-UP IN 3-5 DAYS PATIENT IS MODERATE RISK. Expected Outcomes/Goals Expected Outcomes/Goals PT TO CONSUME 75-100% NUTRIENT NEEDS DAILY RD TO F/UP IN 3-5 DAYS, MONITOR INTAKE, WEIGHT, SKIN INTEGRITY, LABS DIETITIAN WILL MONITOR PO INTAKE, NUTRITION-RELATED LABS TRENDING WNL, SKIN INTEGRITY, WEIGHTS, GI FUNCTION. DISCHARGE PLAN:PATIENT SHOULD BE ABLE TO CONTINUE WITH CURRENT DIET UPON DISCHARGE. [address]
[2018-10-29] MEDS: FLUPHENAZINE HCL 2.5 MG/ML IM SCH (22:00)
--- NOTE | 2018-10-30 06:23 | Progress Notes ---
DATE: 10/29/2018 SUBJECTIVE: The patient was lying on her bed, looking up at the ceiling. The patient was alert and more irritable this morning. When asked how she is doing, the patient stated that she wants to get out of here. When asked if she had her breakfast, the patient stated that she is fasting. When asked how long she is going to fast, the patient stated "Until I ". The patient did not respond when asked if she slept last night. The patient called this sql report writer "brionna." OBJECTIVE: The patient is more delusional this morning. The patient is more easily agitated. Her speech continued to be quite normal. It is not pressured. No Disorganized thought. The staff reported that the patient had been refusing her medications. The patient slept okay last night. The patient also refused to eat breakfast this morning. ASSESSMENT: Schizophrenia, chronic paranoid type. PLAN: The patient did not receive her Prolixin IM last evening because this has been changed from morning time to evening time. Since the patient had received her injection yesterday morning; therefore, the patient will receive her next dose this evening. We will continue to monitor the patient response to medication. JOB# [id number] CANDACE
--- NOTE | 2018-10-30 06:42 | Progress Notes ---
DATE: 10/28/2018 PSYCHOLOGY PROGRESS NOTE SUBJECTIVE: The patient is seen and is interviewed. Case is discussed with staff. The patient is somnolent and barely arousable verbally. The patient is arousable by touch. The patient seems to be friendly at first, but became easily agitated. The patient became demanding about her discharge and when she will get to go home. The patient stated she does not need any medication and that there is nothing wrong with her. The patient is not responding well to the psychotherapeutic interventions being provided. Staff reports the patient has been calmer today, but continues to be delusional and easily agitated. The patient's behavior remains unpredictable at times. OBJECTIVE: Mood is irritable. Affect is constricted. Thought process includes paranoid ideation. The patient did not answer questions about experiencing auditory or visual hallucinations. The patient denied any thoughts of suicide or any wish to . Staff reports the patient has been refusing to eat and refusing to take her medication. The patient is followed up by the attending psychiatrist for medication management. ASSESSMENT AND PLAN: The patient continues to be delusional. Psychosis is not resolving. The patient is refusing food as well as medication. The attending psychiatrist has started Prolixin IM. The patient did not participate in the supportive psychotherapeutic interventions. The patient is mostly resistant as well as dismissive and agitated. We provided remotivation for the patient to become compliant and stay compliant with all aspects of her care and treatment. We provided reality testing including reality orientation, differentiation, and integration. We provided coping strategies for phase of life issues as well as for chronic severe mental illness. We will reevaluate the patient in 2 days for continued psychology services contingent upon the patient's capacity to benefit and her willingness to participate in this type of treatment. Staff reports the patient is conserved. Case management is in discussion with the attending psychiatrist about placement. JOB# [id number] CANDACE
[2018-10-30] MEDS: Ferrous Sulfate 325 MG TAB PO SCH ×2 (08:04→17:59)
[2018-10-30] MEDS: Calcium Carb/Vit D 500 mg/200 U Tab PO SCH ×2 (08:04→17:59)
[2018-10-30] MEDS: Benztropine 1 MG TAB PO SCH (08:04)
[2018-10-30] MEDS: Multivitamin w/ Minerals Tab PO SCH (08:05)
--- NOTE | 2018-10-30 11:20 | Internal Medicine Prog Note ---
Internal Medicine Subjective - Subjective Service Date: 10/30/18 Patient seen and examined:: with staff Patient is:: awake, non-interactive, agitated Patient Complaints of:: other (Hx of Psychosis, Dementia, Schizophrenia.) Per staff patient has:: no adverse event, no episodes of fall Internal Medicine Objective - Results Result Diagrams: 10/23/18 23:25 10/23/18 23:25 Recent Labs: Laboratory Last Values WBC 6.0 Th/cmm (4.8-10.8) 10/23/18 23: RBC 3.50 Mil/cmm (3.80-5.20) L 10/23/18 23:25 Hgb 10.9 gm/dL (12-16) L 10/23/18 23:25 Hct 32.5 % (41.0-60) L 10/23/18 23:25 MCV 92.8 fl (81-100) 10/23/18 23: MCH 31.1 pg (27.0-31.0) H 10/23/18: MCHC Differential 33.5 pg (28.0-36.0) 10/23/18 23:25 RDW 13.0 % (11.5-20.0) 10/23/18 23: Plt Count 248 Th/cmm (150-400) 10/23/18 23:25 MPV 7.4 fl 10/23/18 23:25 Neutrophils % 45.0 % (40.0-80.0) 10/23/18 23:25 Lymphocytes % 39.7 % (20.0-50.0) 10/23/18 23: Monocytes % 9.3 % (2.0-10.0) 10/23/18 23:25 Eosinophils % 5.0 % (0.0-5.0) 10/23/18 23: Basophils % 1.0 % (0.0-2.0) 10/23/18 23:25 Sodium 139 mEq/L (136-145) 10/23/18 23:25 Potassium 4.2 mEq/L (3.5-5.1) 10/23/18 23:25 Chloride 106 mEq/L (98-107) 10/23/18 23:25 Carbon Dioxide 25.0 mEq/L (21.0-31.0) 10/23/18 23:25 Anion Gap 12.2 (7.0-16.0) 10/23/18 23:25 BUN 31 mg/dL (7-25) H 10/23/18 23:25 Creatinine 0.8 mg/dL (0.6-1.2) 10/23/18 23:25 Est GFR ( Amer) TNP 10/23/18 23:25 Est GFR (Non-Af Amer) TNP 10/23/18 23:25 BUN/Creatinine Ratio 38.8 10/23/18 23:25 Glucose 97 mg/dL (70-105) 10/23/18 23:25 Calcium 9.3 mg/dL (8.6-10.3) 10/23/18 23:25 Total Bilirubin 0.2 mg/dL (0.3-1.0) L 10/23/18 23:25 AST 9 U/L (13-39) L 10/23/18 23:25 ALT 10 U/L (7-52) 10/23/18 23:25 Alkaline Phosphatase 51 U/L (34-104) 10/23/18 23:25 Total Protein 6.3 gm/dL (6.0-8.3) 10/23/18 23:25 Albumin 3.6 gm/dL (3.7-5.3) L 10/23/18 23:25 Globulin 2.7 gm/dL 10/23/18 23:25 Albumin/Globulin Ratio 1.3 (1.0-1.8) 10/23/18 23:25 Triglycerides 73 mg/dL (<150) 10/24/18 01:45 Cholesterol 178 mg/dL (<200) 10/24/18 01:45 LDL Cholesterol Direct 88 mg/dL (75-193) 10/24/18 01:45 HDL Cholesterol 74 mg/dL (23-92) 10/24/18 01:45 - Physical Exam Vitals and I&O: Vital Signs Temp 96.7 F 10/30/18 06:36 Pulse 104 10/30/18 06:36 Resp 18 10/30/18 08:00 BP 144/75 10/30/18 06:36 Pulse Ox 95 10/30/18 06:36 Intake & Output 10/29/18 10/30/18 10/30/18 18:59 06:59 18:59 Intake Total 1300 360 Balance 1300 360 Intake: Oral 1300 360 Other: # Voids 4 2 # Bowel Movements 0 0 Active Medications: Current Medications Acetaminophen (Tylenol) 650 mg PO Q4HR PRN PRN Reason: Mild Pain or Fever >101 Stop: 12/23/18 01:39 Acetaminophen (Tylenol Extra Strength) 1,000 mg PO Q4HR PRN PRN Reason: Pain (Moderate) Stop: 12/23/18 01:39 Benztropine Mesylate (Cogentin) 3 mg PO DAILY [facility] Stop: 12/23/18 08:59 Last Admin: 10/30/18 08:04 Dose: Not Given Calcium/Vitamin D (Oscal W/Vitamin D) 1 tab PO BID [facility] Stop: 12/23/18 08:59 Last Admin: 10/30/18 08:04 Dose: Not Given Divalproex Sodium (Depakote Sprinkle) 375 mg PO BID [facility]; Protocol Stop: 12/23/18 08:59 Last Admin: 10/30/18 08:04 Dose: Not Given Docusate Sodium (Colace) 250 mg PO DAILY [facility] Stop: 12/23/18 08:59 Last Admin: 10/30/18 08:05 Dose: Not Given Ferrous Sulfate (Iron) 325 mg PO BID [facility] Stop: 12/23/18 08:59 Last Admin: 10/30/18 08:04 Dose: Not Given Fluphenazine Decanoate (Prolixin Deconate) 25 mg IM [id number] [facility]; Protocol Stop: 12/31/18 08:44 Fluphenazine HCl (Prolixin) 10 mg IM HS [facility]; Protocol Stop: 12/28/18 20:59 Last Admin: 10/29/18 22:00 Dose: 10 mg Lamotrigine (Lamictal) 25 mg PO DAILY [facility]; Protocol Stop: 12/23/18 08:59 Last Admin: 10/30/18 08:05 Dose: Not Given Metoprolol Tartrate (Lopressor) 50 mg PO DAILY [facility] Stop: 12/23/18 08:59 Last Admin: 10/30/18 08:05 Dose: Not Given Physical Exam: 88 y/o female patient is very agitated and non-interactive. Patient has hx of Psychosis, Dementia, Schizophrenia, Htn, OA and was found to have Anemia. General: weak, demented, other (awake, non-verbal) HEENT: NC/AT Neck: Supple, No JVD Lungs: other (no acute respiratory distress) Cardiovascular: Normal S1, Normal S2 Abdomen: soft, non-tender Extremities: clear Neurological: other (Altered mental status.) - Procedures Procedures: Procedures Procedure Code Date OTHER GROUP THERAPY 94.44 03/02/10 RECREATIONAL THERAPY 93.81 03/02/10 Internal Medicine Assmt/Plan - Assessment Assessment: Psychosis. Iron-deficiency Anemia. HTN. Schizophrenia. Dementia. OA. - Plan Plan: Continuation of care. Monitor Vitals and Labs. Continue present meds as directed. Fall precaution. Pain management. Psych management per psych. Continue present care management. Nutritional Asmnt/Malnutr-PDOC - Dietary Evaluation Malnutrition Findings (Please click <Entered> for more info): Nutritional Asmnt/Malnutrition Start: 10/29/18 16: 03 Text: Status: Active Freq: Protocol: Document 10/29/18 16:03 ELIESER (Rec: 10/29/18 16:09 ELIESER [email or web address]) Nutritional Asmnt/Malnutrition Patient General Information Nutritional Screening Moderate Risk Diagnosis PSYCHOSIS, NOS Pertinent Medical Hx/Surgical Hx HTN, DM, DEMENTIA, ATHRITUS, YTI, BIPOLAR PSYCHOSIS, SEIZURES Subjective Information PT SEEN LYING DOWN ON BED AT TIME FO VISIT. PT IS CONFUSED AND UNABLE TO ANSWER QUESTIONS . PER USABILITY STRATEGIST (ELLIOT), PT REFUSED TO EAT BREAKFAST AND LUNCH BUT DRINK WATER ONLY. NO FOOD TEXTURE CONCERN REPORTED. OFFERED OPTION ON ORAL SUPPLEMENT, MAY CONSIDER ENSURE TID IF PO INTAKE DOES NOT IMPROVE IN 3-5 DAYS MODERATE RISK INITIAL NUTRITION SCREENING FOR BRANDO SCORE 17. PATIENT IS A 88 Y/O FEMALE ADMITTED ON 10/24/2018 WITH PSYCHOSIS, NOS. BMI: 25.0 KG/M2 (OVERWEIGHT) IBW: 56.8 KG %IBW: 120% CURRENT DIET: 2 GRAM NA, CHOPPED BRANDO SCORE: 17 SKIN: INTACT LAST BM: 10/26 X 1 ESTIMATED NEEDS ARE BASED ON ACTUAL BODY WEIGHT 68 KG FOR WEIGHT MAINTENANCE. CALORIES: 0064-9019 KCAL/DAY ( 25-30 KCAL/KG) PROTEIN: 54-68 GM PRO/DAY (0.8 -1 G/KG) FLUID: 1574-5632 ML/DAY (1 ML/ KCAL) Current Diet Order/ Nutrition Support 2 GRAM NA, CHOPPED Pertinent Medications OSCAL W/VIT D, COLACE, IRON, PROLIXIN, LOPRESSOR Pertinent Labs 10/23 BUN 31, ALB 3.6 Nutritional Hx/Data Height 1.65 m Height (Calculated Centimeters) 165.1 Current Weight (lbs) 68.039 kg Weight (Calculated Kilograms) 68.0 Weight (Calculated Grams) 61942.9 [place] Body Weight 56.8 % [place] Body Weight 120 Body Mass Index (BMI) 25.0 Weight Status Overweight GI Symptoms GI Symptoms None Last BM 10/26 Difficult in: None Skin Integrity/Comment: BRANDO 17, SKIN INTACT Current %PO Negligible < 25% Estimated Nutritional Goals BEE in Kcals: Using Current wt Calories/Kcals/Kg 25-30 Kcals Calculated 9128-7609 Protein: Using Current wt Protein g/k.8-1 Protein Calculated 54-68 Fluid: ml 1.7-2 L/DAY (1 ML/KCAL) Nutritional Problem 1. Problem Problem INADEQUATE ORAL INTAKE Etiology LOW APPETITE Signs/Symptoms: PO INTAKE 0% ON 10/28 Intervention/Recommendation Comments 1. Continue with 2 gram NA diet with chopped texture as ordered. Will add Ensure clear in dinner to increase oral intake if po intake does not improve 2. Monitor PO intake, wt, labs and skin integrity RD TO FOLLOW-UP IN 3-5 DAYS PATIENT IS MODERATE RISK. Expected Outcomes/Goals Expected Outcomes/Goals PT TO CONSUME 75-100% NUTRIENT NEEDS DAILY RD TO F/UP IN 3-5 DAYS, MONITOR INTAKE, WEIGHT, SKIN INTEGRITY, LABS DIETITIAN WILL MONITOR PO INTAKE, NUTRITION-RELATED LABS TRENDING WNL, SKIN INTEGRITY, WEIGHTS, GI FUNCTION. DISCHARGE PLAN:PATIENT SHOULD BE ABLE TO CONTINUE WITH CURRENT DIET UPON DISCHARGE. [address]
[2018-10-30] MEDS: FLUPHENAZINE HCL 2.5 MG/ML IM SCH (20:57)
--- NOTE | 2018-10-31 03:54 | Progress Notes ---
DATE: 10/30/2018 SUBJECTIVE: The patient resting on her bed with eyes closed. The patient responded to verbal stimuli by opening her eyes. The patient maintained adequate eye contact. The patient is not as verbal today as yesterday. The patient continued to be psychotic. The patient asked who this health technical writer is. The patient stated that she did not eat. When asked why, the patient did not respond. When asked if she slept last night, the patient reported yes, but not able to say how many hours she slept. OBJECTIVE: The patient is less verbal today. The speech was soft and mumbling, difficult to understand most of the time. The staff reported that the patient continued to be uncooperative with care and treatment. The patient refused all her p.o. medications. The patient received her Prolixin IM last evening. The patient refused to eat. The patient stated that she is being held here against her will. 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 PLAN: We will continue the patient on Prolixin IM and monitor the patient's response to the medication. Consider increasing Prolixin IM if patient continued to show no improvement on the current dose. JOB# [id number] CANDACE
[2018-10-31] MEDS: Calcium Carb/Vit D 500 mg/200 U Tab PO SCH ×2 (08:09→16:55)
[2018-10-31] MEDS: Benztropine 1 MG TAB PO SCH (08:09)
[2018-10-31] MEDS: Ferrous Sulfate 325 MG TAB PO SCH ×2 (08:09→16:55)
[2018-10-31] MEDS: Multivitamin w/ Minerals Tab PO SCH (08:13)
[2018-10-31] MEDS: FLUPHENAZINE HCL 2.5 MG/ML IM SCH (20:49)
--- NOTE | 2018-11-01 02:15 | Progress Notes ---
DATE: 10/31/2018 SUBJECTIVE: The patient was resting on her bed, alert, quiet. The patient had eaten most of her breakfast. When approached and asked how she is doing, the patient stated "You are my doctor at the other hospital". When asked, which hospital, the patient did not respond. The patient stopped responding to any question. When asked how she slept last night, there was no response. When asked if she had taken her medication, there was no response. OBJECTIVE: The patient continued to be quite delusional. Her speech appeared to be more normal today. However, the patient did not respond very much verbally. The staff reported that the patient continued to be delusional. She said that she is not taking her medications because she is 3 months . However, the patient has been eating. The patient slept okay last night. ASSESSMENT: Schizophrenia, chronic paranoid type, in acute exacerbation. PLAN: We will continue the patient on Prolixin IM and monitor the patient's response. JOB# [id number] CANDACE
--- NOTE | 2018-11-01 02:21 | Progress Notes ---
DATE: 10/31/2018 SUBJECTIVE: The patient was seen in her room. The patient is asleep, but easily arousable. The patient appears to be confused, irritated, easily gets frustrated, appears to be guarded with occasional behavioral outbursts. Otherwise, the patient appears to be in no acute distress. OBJECTIVE: VITAL SIGNS: Temperature 97.1, heart rate 88, blood pressure 109/67, respirations 18, saturation 94% on room air. HEENT: Head is atraumatic and normocephalic. Eyes: Bilateral conjunctivae are clear. Bilateral pupils are equally round and reactive. NECK: Supple. No JVD. CARDIOVASCULAR: S1, S2, without murmur. PULMONARY: Clear to auscultation. GASTROINTESTINAL: Soft and nontender without guarding. Positive bowel sounds. MUSCULOSKELETAL: No clubbing. No cyanosis noted. ASSESSMENT: 1. Dementia. 2. Hypertension. 3. Iron deficiency anemia. 4. Osteoarthritis. PLAN: We will keep the patient to inpatient psychiatric unit. We will followup with a psychiatrist to monitor the patient's condition and behavior. Treatment plans were discussed with the patient's nurse. Treatment plans were discussed with Dr. John. JOB# [id number]
[2018-11-01] MEDS: Multivitamin w/ Minerals Tab PO SCH (09:00)
[2018-11-01] MEDS: Ferrous Sulfate 325 MG TAB PO SCH ×2 (09:00→14:00)
[2018-11-01] MEDS: Benztropine 1 MG TAB PO SCH (09:00)
[2018-11-01] MEDS: Calcium Carb/Vit D 500 mg/200 U Tab PO SCH (09:00)
--- NOTE | 2018-11-01 09:50 | Progress Notes ---
DATE: 10/30/2018 PSYCHOLOGY PROGRESS NOTE SUBJECTIVE: The patient is seen resting on her bed. The patient appears to be somnolent, but arousable verbally. The patient seems to be less agitated during this visit. The patient continues to refuse food and medication. According to the staff, the patient is receiving IM Prolixin. The patient is demanding to be discharged and is verbalizing ideas of reference with respect to the healthcare providers being with the devil. The patient continues to be difficult to redirect. OBJECTIVE: Mood is irritable. Affect is constricted. Speech is slow and soft. Eye contact is [id number]. The patient continues to be uncooperative with care and is refusing her p.o. medications as well as refusing to eat. The patient stated that she believes she is being held against her will. There is some evidence that paranoid ideation persists. ASSESSMENT AND PLAN: The patient has a long history of schizophrenia, chronic, paranoid type. The patient's psychosis and paranoid delusion persist. We provided reality orientation, differentiation, and integration. We provided remotivation for the patient to become compliant with her care and treatment. We provided coping strategies for phase of life issues as well as for chronic severe mental illness. The patient is continued on Prolixin IM according to the attending psychiatrist. We will follow up in 2 days to continue the present treatment if the patient is able to demonstrate a capacity to benefit from this type of treatment and if the patient continues to be admitted on the unit. JOB# [id number] CANDACE
--- NOTE | 2018-11-01 17:46 | Internal Medicine Prog Note ---
Internal Medicine Subjective - Subjective Service Date: 11/01/18 Patient is:: awake, non-interactive, agitated, confused Patient Complaints of:: other (Hx of Psychosis, Dementia, Schizophrenia.) Per staff patient has:: no adverse event, no episodes of fall Internal Medicine Objective - Results Result Diagrams: 10/23/18 23:25 10/23/18 23:25 Recent Labs: Laboratory Last Values WBC 6.0 Th/cmm (4.8-10.8) 10/23/18 23: RBC 3.50 Mil/cmm (3.80-5.20) L 10/23/18 23:25 Hgb 10.9 gm/dL (12-16) L 10/23/18 23:25 Hct 32.5 % (41.0-60) L 10/23/18 23:25 MCV 92.8 fl (81-100) 10/23/18 23:25 MCH 31.1 pg (27.0-31.0) H 10/23/18 23: MCHC Differential 33.5 pg (28.0-36.0) 10/23/18 23:25 RDW 13.0 % (11.5-20.0) 10/23/18 23:25 Plt Count 248 Th/cmm (150-400) 10/23/18 23:25 MPV 7.4 fl 10/23/18 23:25 Neutrophils % 45.0 % (40.0-80.0) 10/23/18 23:25 Lymphocytes % 39.7 % (20.0-50.0) 10/23/18 23: Monocytes % 9.3 % (2.0-10.0) 10/23/18 23:25 Eosinophils % 5.0 % (0.0-5.0) 10/23/18 23: Basophils % 1.0 % (0.0-2.0) 10/23/18 23:25 Sodium 139 mEq/L (136-145) 10/23/18 23:25 Potassium 4.2 mEq/L (3.5-5.1) 10/23/18 23:25 Chloride 106 mEq/L (98-107) 10/23/18 23:25 Carbon Dioxide 25.0 mEq/L (21.0-31.0) 10/23/18 23:25 Anion Gap 12.2 (7.0-16.0) 10/23/18 23:25 BUN 31 mg/dL (7-25) H 10/23/18 23:25 Creatinine 0.8 mg/dL (0.6-1.2) 10/23/18 23:25 Est GFR ( Amer) TNP 10/23/18 23:25 Est GFR (Non-Af Amer) TNP 10/23/18 23:25 BUN/Creatinine Ratio 38.8 10/23/18 23:25 Glucose 97 mg/dL (70-105) 10/23/18 23:25 Calcium 9.3 mg/dL (8.6-10.3) 10/23/18 23:25 Total Bilirubin 0.2 mg/dL (0.3-1.0) L 10/23/18 23:25 AST 9 U/L (13-39) L 10/23/18 23:25 ALT 10 U/L (7-52) 10/23/18 23:25 Alkaline Phosphatase 51 U/L (34-104) 10/23/18 23:25 Total Protein 6.3 gm/dL (6.0-8.3) 10/23/18 23:25 Albumin 3.6 gm/dL (3.7-5.3) L 10/23/18 23:25 Globulin 2.7 gm/dL 10/23/18 23:25 Albumin/Globulin Ratio 1.3 (1.0-1.8) 10/23/18 23:25 Triglycerides 73 mg/dL (<150) 10/24/18 01:45 Cholesterol 178 mg/dL (<200) 10/24/18 01:45 LDL Cholesterol Direct 88 mg/dL (75-193) 10/24/18 01:45 HDL Cholesterol 74 mg/dL (23-92) 10/24/18 01:45 - Physical Exam Vitals and I&O: Vital Signs Temp 98.2 F 10/31/18 14:00 Pulse 78 10/31/18 14:00 Resp 20 10/31/18 14:00 BP 136/68 10/31/18 14:00 Pulse Ox 98 10/31/18 14:00 Intake & Output 10/31/18 11/01/18 11/01/18 18:59 06:59 18:59 Intake Total 800 200 Balance 800 200 Intake: Oral 800 200 Other: # Voids 3 2 # Bowel Movements 1 Active Medications: Current Medications Acetaminophen (Tylenol) 650 mg PO Q4HR PRN PRN Reason: Mild Pain or Fever >101 Stop: 12/23/18 01:39 Acetaminophen (Tylenol Extra Strength) 1,000 mg PO Q4HR PRN PRN Reason: Pain (Moderate) Stop: 12/23/18 01:39 Benztropine Mesylate (Cogentin) 3 mg PO DAILY [facility] Stop: 12/23/18 08:59 Last Admin: 11/01/18 09:00 Dose: Not Given Calcium/Vitamin D (Oscal W/Vitamin D) 1 tab PO BID [facility] Stop: 12/23/18 08:59 Last Admin: 11/01/18 09:00 Dose: Not Given Divalproex Sodium (Depakote Sprinkle) 375 mg PO BID [facility]; Protocol Stop: 12/23/18 08:59 Last Admin: 11/01/18 09:00 Dose: Not Given Docusate Sodium (Colace) 250 mg PO DAILY [facility] Stop: 12/23/18 08:59 Last Admin: 11/01/18 09:00 Dose: Not Given Ferrous Sulfate (Iron) 325 mg PO BID [facility] Stop: 12/23/18 08:59 Last Admin: 11/01/18 09:00 Dose: Not Given Fluphenazine Decanoate (Prolixin Deconate) 25 mg IM [id number] [facility]; Protocol Stop: 12/31/18 08:44 Last Admin: 11/01/18 09:59 Dose: 25 mg Fluphenazine HCl (Prolixin) 10 mg IM HS [facility]; Protocol Stop: 12/28/18 20:59 Last Admin: 10/31/18 20:49 Dose: 10 mg Lamotrigine (Lamictal) 25 mg PO DAILY [facility]; Protocol Stop: 12/23/18 08:59 Last Admin: 11/01/18 14:05 Dose: Not Given Metoprolol Tartrate (Lopressor) 50 mg PO DAILY [facility] Stop: 12/23/18 08:59 Last Admin: 11/01/18 09:00 Dose: Not Given Physical Exam: 88 y/o female patient is confused, irritated, easily gets frustrated and is having episodes of outbursts. We will continue to monitor patient. General: weak, demented, other (awake, non-verbal) HEENT: NC/AT Neck: Supple, No JVD Lungs: other (no acute respiratory distress) Cardiovascular: Normal S1, Normal S2 Abdomen: soft, non-tender Extremities: clear Neurological: other (Altered mental status.) - Procedures Procedures: Procedures Procedure Code Date OTHER GROUP THERAPY 94.44 03/02/10 RECREATIONAL THERAPY 93.81 03/02/10 Internal Medicine Assmt/Plan - Assessment Assessment: Acute Psychosis. Iron-deficiency Anemia. HTN. Schizophrenia. Dementia. OA. - Plan Plan: Continuation of care. Monitor Vitals and Labs. Continue present meds as directed. Fall precaution. Pain management. Psych management per psych. Continue present care management. Nutritional Asmnt/Malnutr-PDOC - Dietary Evaluation Malnutrition Findings (Please click <Entered> for more info): Nutritional Asmnt/Malnutrition Start: 10/29/18 16: 03 Text: Status: Active Freq: Protocol: Document 10/29/18 16:03 ELIESER (Rec: 10/29/18 16:09 ELIESER [email or web address]) Nutritional Asmnt/Malnutrition Patient General Information Nutritional Screening Moderate Risk Diagnosis PSYCHOSIS, NOS Pertinent Medical Hx/Surgical Hx HTN, DM, DEMENTIA, ATHRITUS, YTI, BIPOLAR PSYCHOSIS, SEIZURES Subjective Information PT SEEN LYING DOWN ON BED AT TIME FO VISIT. PT IS CONFUSED AND UNABLE TO ANSWER QUESTIONS . PER ASSOCIATE FINANCIAL PLANNER (ELLIOT), PT REFUSED TO EAT BREAKFAST AND LUNCH BUT DRINK WATER ONLY. NO FOOD TEXTURE CONCERN REPORTED. OFFERED OPTION ON ORAL SUPPLEMENT, MAY CONSIDER ENSURE TID IF PO INTAKE DOES NOT IMPROVE IN 3-5 DAYS MODERATE RISK INITIAL NUTRITION SCREENING FOR BRANDO SCORE 17. PATIENT IS A 88 Y/O FEMALE ADMITTED ON 10/24/2018 WITH PSYCHOSIS, NOS. BMI: 25.0 KG/M2 (OVERWEIGHT) IBW: 56.8 KG %IBW: 120% CURRENT DIET: 2 GRAM NA, CHOPPED BRANDO SCORE: 17 SKIN: INTACT LAST BM: 10/26 X 1 ESTIMATED NEEDS ARE BASED ON ACTUAL BODY WEIGHT 68 KG FOR WEIGHT MAINTENANCE. CALORIES: 5686-2001 KCAL/DAY ( 25-30 KCAL/KG) PROTEIN: 54-68 GM PRO/DAY (0.8 -1 G/KG) FLUID: 8983-3329 ML/DAY (1 ML/ KCAL) Current Diet Order/ Nutrition Support 2 GRAM NA, CHOPPED Pertinent Medications OSCAL W/VIT D, COLACE, IRON, PROLIXIN, LOPRESSOR Pertinent Labs 10/23 BUN 31, ALB 3.6 Nutritional Hx/Data Height 1.65 m Height (Calculated Centimeters) 165.1 Current Weight (lbs) 68.039 kg Weight (Calculated Kilograms) 68.0 Weight (Calculated Grams) 16071.9 [place] Body Weight 56.8 % [place] Body Weight 120 Body Mass Index (BMI) 25.0 Weight Status Overweight GI Symptoms GI Symptoms None Last BM 10/26 Difficult in: None Skin Integrity/Comment: BRANDO 17, SKIN INTACT Current %PO Negligible < 25% Estimated Nutritional Goals BEE in Kcals: Using Current wt Calories/Kcals/Kg 25-30 Kcals Calculated 4336-8881 Protein: Using Current wt Protein g/k.8-1 Protein Calculated 54-68 Fluid: ml 1.7-2 L/DAY (1 ML/KCAL) Nutritional Problem 1. Problem Problem INADEQUATE ORAL INTAKE Etiology LOW APPETITE Signs/Symptoms: PO INTAKE 0% ON 10/28 Intervention/Recommendation Comments 1. Continue with 2 gram NA diet with chopped texture as ordered. Will add Ensure clear in dinner to increase oral intake if po intake does not improve 2. Monitor PO intake, wt, labs and skin integrity RD TO FOLLOW-UP IN 3-5 DAYS PATIENT IS MODERATE RISK. Expected Outcomes/Goals Expected Outcomes/Goals PT TO CONSUME 75-100% NUTRIENT NEEDS DAILY RD TO F/UP IN 3-5 DAYS, MONITOR INTAKE, WEIGHT, SKIN INTEGRITY, LABS DIETITIAN WILL MONITOR PO INTAKE, NUTRITION-RELATED LABS TRENDING WNL, SKIN INTEGRITY, WEIGHTS, GI FUNCTION. DISCHARGE PLAN:PATIENT SHOULD BE ABLE TO CONTINUE WITH CURRENT DIET UPON DISCHARGE. [address]EM[address]
--- NOTE | 2018-11-01 19:17 | Progress Notes ---
DATE: 11/01/2018 SUBJECTIVE: The patient sitting up in bed. The patient was alert, but not very cooperative. When approached, the patient stated, "You are the doctor at the other hospital." The patient did not respond when asked which hospital. The patient suddenly stated, "You are a devil." When I asked if she had breakfast, the patient did not respond. When asked how she slept last night, again the patient did not respond. The patient did not respond either when I asked if she had taken her medications. The patient put fingers over her ears and did not respond any more to any question. OBJECTIVE: The patient continued to be quite delusional and uncooperative with the interview or care. Staff reported that the patient had refused to eat this morning. The patient continued to refuse her oral medications. Staff reported that the patient slept okay. The patient will receive her Prolixin Decanoate 25 mg today. ASSESSMENT: Schizophrenia, chronic paranoid type, in acute exacerbation. PLAN: We will continue the patient on Prolixin with beginning of Prolixin Decanoate today, then every 14 days. We will continue to monitor the patient for her psychotic symptoms and her compliance with care and treatment. JOB# [id number] CANDACE
[2018-11-01] MEDS: FLUPHENAZINE HCL 2.5 MG/ML IM SCH (21:07)
--- NOTE | 2018-11-02 10:21 | Internal Medicine Prog Note ---
Internal Medicine Subjective - Subjective Service Date: 11/02/18 Patient seen and examined:: with staff Patient is:: awake, non-interactive, agitated, confused Patient Complaints of:: other (Hx of Psychosis, Dementia, Schizophrenia.) Per staff patient has:: no adverse event, no episodes of fall Internal Medicine Objective - Results Result Diagrams: 10/23/18 23:25 10/23/18 23:25 Recent Labs: Laboratory Last Values WBC 6.0 Th/cmm (4.8-10.8) 10/23/18 23:25 RBC 3.50 Mil/cmm (3.80-5.20) L 10/23/18 23:25 Hgb 10.9 gm/dL (12-16) L 10/23/18 23:25 Hct 32.5 % (41.0-60) L 10/23/18 23:25 MCV 92.8 fl (81-100) 10/23/18 23:25 MCH 31.1 pg (27.0-31.0) H 10/23/18 23: MCHC Differential 33.5 pg (28.0-36.0) 10/23/18 23:25 RDW 13.0 % (11.5-20.0) 10/23/18 23: Plt Count 248 Th/cmm (150-400) 10/23/18 23:25 MPV 7.4 fl 10/23/18 23:25 Neutrophils % 45.0 % (40.0-80.0) 10/23/18 23:25 Lymphocytes % 39.7 % (20.0-50.0) 10/23/18 23:25 Monocytes % 9.3 % (2.0-10.0) 10/23/18 23:25 Eosinophils % 5.0 % (0.0-5.0) 10/23/18 23: Basophils % 1.0 % (0.0-2.0) 10/23/18 23:25 Sodium 139 mEq/L (136-145) 10/23/18 23:25 Potassium 4.2 mEq/L (3.5-5.1) 10/23/18 23:25 Chloride 106 mEq/L (98-107) 10/23/18 23:25 Carbon Dioxide 25.0 mEq/L (21.0-31.0) 10/23/18 23:25 Anion Gap 12.2 (7.0-16.0) 10/23/18 23:25 BUN 31 mg/dL (7-25) H 10/23/18 23:25 Creatinine 0.8 mg/dL (0.6-1.2) 10/23/18 23:25 Est GFR ( Amer) TNP 10/23/18 23:25 Est GFR (Non-Af Amer) TNP 10/23/18 23:25 BUN/Creatinine Ratio 38.8 10/23/18 23:25 Glucose 97 mg/dL (70-105) 10/23/18 23:25 Calcium 9.3 mg/dL (8.6-10.3) 10/23/18 23:25 Total Bilirubin 0.2 mg/dL (0.3-1.0) L 10/23/18 23:25 AST 9 U/L (13-39) L 10/23/18 23:25 ALT 10 U/L (7-52) 10/23/18 23:25 Alkaline Phosphatase 51 U/L (34-104) 10/23/18 23:25 Total Protein 6.3 gm/dL (6.0-8.3) 10/23/18 23:25 Albumin 3.6 gm/dL (3.7-5.3) L 10/23/18 23:25 Globulin 2.7 gm/dL 10/23/18 23:25 Albumin/Globulin Ratio 1.3 (1.0-1.8) 10/23/18 23:25 Triglycerides 73 mg/dL (<150) 10/24/18 01:45 Cholesterol 178 mg/dL (<200) 10/24/18 01:45 LDL Cholesterol Direct 88 mg/dL (75-193) 10/24/18 01:45 HDL Cholesterol 74 mg/dL (23-92) 10/24/18 01:45 - Physical Exam Vitals and I&O: Vital Signs Temp 98.2 F 10/31/18 14:00 Pulse 78 10/31/18 14:00 Resp 20 10/31/18 14:00 BP 136/68 10/31/18 14:00 Pulse Ox 98 10/31/18 14:00 Intake & Output 11/01/18 11/02/18 11/02/18 18:59 06:59 18:59 Intake Total 0 120 Balance 0 120 Intake: Oral 0 120 Other: # Voids 1 3 # Bowel Movements 0 Active Medications: Current Medications Acetaminophen (Tylenol) 650 mg PO Q4HR PRN PRN Reason: Mild Pain or Fever >101 Stop: 12/23/18 01:39 Acetaminophen (Tylenol Extra Strength) 1,000 mg PO Q4HR PRN PRN Reason: Pain (Moderate) Stop: 12/23/18 01:39 Benztropine Mesylate (Cogentin) 3 mg PO DAILY [facility] Stop: 12/23/18 08:59 Last Admin: 11/01/18 09:00 Dose: Not Given Calcium/Vitamin D (Oscal W/Vitamin D) 1 tab PO BID [facility] Stop: 12/23/18 08:59 Last Admin: 11/01/18 09:00 Dose: Not Given Divalproex Sodium (Depakote Sprinkle) 375 mg PO BID [facility]; Protocol Stop: 12/23/18 08:59 Last Admin: 11/01/18 09:00 Dose: Not Given Docusate Sodium (Colace) 250 mg PO DAILY [facility] Stop: 12/23/18 08:59 Last Admin: 11/01/18 09:00 Dose: Not Given Ferrous Sulfate (Iron) 325 mg PO BID [facility] Stop: 12/23/18 08:59 Last Admin: 11/01/18 09:00 Dose: Not Given Fluphenazine Decanoate (Prolixin Deconate) 25 mg IM [id number] [facility]; Protocol Stop: 12/31/18 08:44 Last Admin: 11/01/18 09:59 Dose: 25 mg Fluphenazine HCl (Prolixin) 10 mg IM HS [facility]; Protocol Stop: 12/28/18 20:59 Last Admin: 11/01/18 21:07 Dose: 10 mg Lamotrigine (Lamictal) 25 mg PO DAILY [facility]; Protocol Stop: 12/23/18 08:59 Last Admin: 11/01/18 14:05 Dose: Not Given Metoprolol Tartrate (Lopressor) 50 mg PO DAILY [facility] Stop: 12/23/18 08:59 Last Admin: 11/01/18 09:00 Dose: Not Given Physical Exam: 88 y/o female patient is still confused, irritated, easily gets frustrated and is having episodes of outbursts. We will continue to monitor patient. General: weak, demented, other (awake, non-verbal) HEENT: NC/AT Neck: Supple, No JVD Lungs: other (no acute respiratory distress) Cardiovascular: Normal S1, Normal S2 Abdomen: soft, non-tender Extremities: clear Neurological: other (Altered mental status.) - Procedures Procedures: Procedures Procedure Code Date OTHER GROUP THERAPY 94.44 03/02/10 RECREATIONAL THERAPY 93.81 03/02/10 Internal Medicine Assmt/Plan - Assessment Assessment: Acute Psychosis. Iron-deficiency Anemia. HTN. Schizophrenia. Dementia. OA. - Plan Plan: Continuation of care. Monitor Vitals and Labs. Continue present meds as directed. Fall precaution. Pain management. Psych management per psych. Continue present care management. Nutritional Asmnt/Malnutr-PDOC - Dietary Evaluation Malnutrition Findings (Please click <Entered> for more info): Nutritional Asmnt/Malnutrition Start: 10/29/18 16: 03 Text: Status: Active Freq: Protocol: Document 10/29/18 16:03 ELIESER (Rec: 10/29/18 16:09 [email or web address]) Nutritional Asmnt/Malnutrition Patient General Information Nutritional Screening Moderate Risk Diagnosis PSYCHOSIS, NOS Pertinent Medical Hx/Surgical Hx HTN, DM, DEMENTIA, ATHRITUS, YTI, BIPOLAR PSYCHOSIS, SEIZURES Subjective Information PT SEEN LYING DOWN ON BED AT TIME FO VISIT. PT IS CONFUSED AND UNABLE TO ANSWER QUESTIONS . PER STUDIO MODEL (ELLIOT), PT REFUSED TO EAT BREAKFAST AND LUNCH BUT DRINK WATER ONLY. NO FOOD TEXTURE CONCERN REPORTED. OFFERED OPTION ON ORAL SUPPLEMENT, MAY CONSIDER ENSURE TID IF PO INTAKE DOES NOT IMPROVE IN 3-5 DAYS MODERATE RISK INITIAL NUTRITION SCREENING FOR BRANDO SCORE 17. PATIENT IS A 88 Y/O FEMALE ADMITTED ON 10/24/2018 WITH PSYCHOSIS, NOS. BMI: 25.0 KG/M2 (OVERWEIGHT) IBW: 56.8 KG %IBW: 120% CURRENT DIET: 2 GRAM NA, CHOPPED BRANDO SCORE: 17 SKIN: INTACT LAST BM: 10/26 X 1 ESTIMATED NEEDS ARE BASED ON ACTUAL BODY WEIGHT 68 KG FOR WEIGHT MAINTENANCE. CALORIES: 3133-4815 KCAL/DAY ( 25-30 KCAL/KG) PROTEIN: 54-68 GM PRO/DAY (0.8 -1 G/KG) FLUID: 7838-6447 ML/DAY (1 ML/ KCAL) Current Diet Order/ Nutrition Support 2 GRAM NA, CHOPPED Pertinent Medications OSCAL W/VIT D, COLACE, IRON, PROLIXIN, LOPRESSOR Pertinent Labs 10/23 BUN 31, ALB 3.6 Nutritional Hx/Data Height 1.65 m Height (Calculated Centimeters) 165.1 Current Weight (lbs) 68.039 kg Weight (Calculated Kilograms) 68.0 Weight (Calculated Grams) 76376.9 [place] Body Weight 56.8 % [place] Body Weight 120 Body Mass Index (BMI) 25.0 Weight Status Overweight GI Symptoms GI Symptoms None Last BM 10/26 Difficult in: None Skin Integrity/Comment: BRANDO 17, SKIN INTACT Current %PO Negligible < 25% Estimated Nutritional Goals BEE in Kcals: Using Current wt Calories/Kcals/Kg 25-30 Kcals Calculated 5546-2169 Protein: Using Current wt Protein g/k.8-1 Protein Calculated 54-68 Fluid: ml 1.7-2 L/DAY (1 ML/KCAL) Nutritional Problem 1. Problem Problem INADEQUATE ORAL INTAKE Etiology LOW APPETITE Signs/Symptoms: PO INTAKE 0% ON 10/28 Intervention/Recommendation Comments 1. Continue with 2 gram NA diet with chopped texture as ordered. Will add Ensure clear in dinner to increase oral intake if po intake does not improve 2. Monitor PO intake, wt, labs and skin integrity RD TO FOLLOW-UP IN 3-5 DAYS PATIENT IS MODERATE RISK. Expected Outcomes/Goals Expected Outcomes/Goals PT TO CONSUME 75-100% NUTRIENT NEEDS DAILY RD TO F/UP IN 3-5 DAYS, MONITOR INTAKE, WEIGHT, SKIN INTEGRITY, LABS DIETITIAN WILL MONITOR PO INTAKE, NUTRITION-RELATED LABS TRENDING WNL, SKIN INTEGRITY, WEIGHTS, GI FUNCTION. DISCHARGE PLAN:PATIENT SHOULD BE ABLE TO CONTINUE WITH CURRENT DIET UPON DISCHARGE. [address]
[2018-11-02] MEDS: Calcium Carb/Vit D 500 mg/200 U Tab PO SCH ×2 (11:39→16:45)
[2018-11-02] MEDS: Ferrous Sulfate 325 MG TAB PO SCH ×2 (11:40→16:45)
[2018-11-02] MEDS: Multivitamin w/ Minerals Tab PO SCH (11:40)
[2018-11-02] MEDS: Benztropine 1 MG TAB PO SCH (11:40)
[2018-11-02] MEDS: FLUPHENAZINE HCL 2.5 MG/ML IM SCH (21:14)
--- NOTE | 2018-11-03 01:43 | Progress Notes ---
DATE: 11/02/2018 SUBJECTIVE: The patient was resting in bed with her eyes closed. When talked to, the patient opened her eyes. The patient immediately said "you are the doctor at the other hospital." The patient continued to say that this brief writer is not her doctor. The patient would not respond when asked how she is doing, if she had breakfast and how she has been sleeping. The patient then said "get away from me." The patient did not respond when asked if she has been taking her medications. The patient also stated "don't touch me." Since the patient continued to be delusional and uncooperative, therefore unable to obtain much information from the patient. OBJECTIVE: The patient continued to be delusional and easily agitated. The staff reported that the patient ate her breakfast this morning, however the patient continued to refuse to take her medications. The staff reported that the patient slept okay last night. The staff reported that the patient has been okay with her when the staff went in there to give her breakfast and assist with the care. However, when this brief writer went into the room with the staff, the patient immediately put both arms up and started screaming "get away from me." ASSESSMENT: Schizophrenia, chronic paranoid type, in acute exacerbation. The patient continues to be delusional. PLAN: We will continue the patient on Prolixin Decanoate 25 mg every 14 days. Consider increasing the Prolixin Decanoate if the patient continues to refuse to take her p.o. medications. JOB# [id number] CANDACE
--- NOTE | 2018-11-03 03:15 | Progress Notes ---
DATE: 11/02/2018 PSYCHOLOGY PROGRESS NOTE SUBJECTIVE: The patient is seen in her room. The patient is alert, but guarded. The patient stated to this engineering technical writer "you are a devil." Staff reports the patient is still refusing her p.o. medications. The patient decided not to answer any other questions and put her hands over her ears. OBJECTIVE: Mood is irritable. Affect is constricted. Thought process shows to be confused. The patient continues to verbalize delusions with ideas of reference. The patient's paranoid ideation persists. The patient's behavior has been uncooperative with care. The patient is also refusing to eat. ASSESSMENT AND PLAN: The patient's paranoia persists. The patient is continued on Prolixin Decanoate. We will continue to provide reality orientation, differentiation and integration. We will continue to provide remotivation and encouragement for the patient to become compliant and stay compliant with all aspects of her care and treatment. We will provide coping strategies for phase of life issues as well as for chronic severe mental illness. We will encourage the patient to verbalize her concerns versus acting out. We will follow up in 2 days to continue the present treatment if the patient is able to demonstrate the capacity to benefit from this type of treatment. We will reassess the patient's capacity and willingness on the next visit. JOB# [id number] CANDACE
[2018-11-03] MEDS: Calcium Carb/Vit D 500 mg/200 U Tab PO SCH ×2 (08:44→17:31)
[2018-11-03] MEDS: Multivitamin w/ Minerals Tab PO SCH (08:45)
[2018-11-03] MEDS: Benztropine 1 MG TAB PO SCH (08:45)
[2018-11-03] MEDS: Ferrous Sulfate 325 MG TAB PO SCH ×2 (08:45→17:32)
[2018-11-03] MEDS: FLUPHENAZINE HCL 2.5 MG/ML IM SCH (21:35)
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
[2018-11-04] MEDS: Calcium Carb/Vit D 500 mg/200 U Tab PO SCH (09:04)
[2018-11-04] MEDS: Benztropine 1 MG TAB PO SCH (09:05)
[2018-11-04] MEDS: Ferrous Sulfate 325 MG TAB PO SCH (09:05)
[2018-11-04] MEDS: Multivitamin w/ Minerals Tab PO SCH (09:06)
--- NOTE | 2018-11-04 10:57 | Internal Medicine Prog Note ---
Internal Medicine Subjective - Subjective Service Date: 11/04/18 Patient is:: awake, non-interactive, agitated, confused Patient Complaints of:: other (Hx of Psychosis, Dementia, Schizophrenia.) Per staff patient has:: no adverse event, no episodes of fall Internal Medicine Objective - Results Result Diagrams: 10/23/18 23:25 10/23/18 23:25 Recent Labs: Laboratory Last Values WBC 6.0 Th/cmm (4.8-10.8) 10/23/18 23:25 RBC 3.50 Mil/cmm (3.80-5.20) L 10/23/18 23:25 Hgb 10.9 gm/dL (12-16) L 10/23/18 23:25 Hct 32.5 % (41.0-60) L 10/23/18 23:25 MCV 92.8 fl (81-100) 10/23/18 23:25 MCH 31.1 pg (27.0-31.0) H 10/23/18 23:25 MCHC Differential 33.5 pg (28.0-36.0) 10/23/18 23:25 RDW 13.0 % (11.5-20.0) 10/23/18 23:25 Plt Count 248 Th/cmm (150-400) 10/23/18 23:25 MPV 7.4 fl 10/23/18 23:25 Neutrophils % 45.0 % (40.0-80.0) 10/23/18 23:25 Lymphocytes % 39.7 % (20.0-50.0) 10/23/18 23: Monocytes % 9.3 % (2.0-10.0) 10/23/18 23:25 Eosinophils % 5.0 % (0.0-5.0) 10/23/18 23:25 Basophils % 1.0 % (0.0-2.0) 10/23/18 23:25 Sodium 139 mEq/L (136-145) 10/23/18 23:25 Potassium 4.2 mEq/L (3.5-5.1) 10/23/18 23:25 Chloride 106 mEq/L (98-107) 10/23/18 23:25 Carbon Dioxide 25.0 mEq/L (21.0-31.0) 10/23/18 23:25 Anion Gap 12.2 (7.0-16.0) 10/23/18 23:25 BUN 31 mg/dL (7-25) H 10/23/18 23:25 Creatinine 0.8 mg/dL (0.6-1.2) 10/23/18 23:25 Est GFR ( Amer) TNP 10/23/18 23:25 Est GFR (Non-Af Amer) TNP 10/23/18 23:25 BUN/Creatinine Ratio 38.8 10/23/18 23:25 Glucose 97 mg/dL (70-105) 10/23/18 23:25 Calcium 9.3 mg/dL (8.6-10.3) 10/23/18 23:25 Total Bilirubin 0.2 mg/dL (0.3-1.0) L 10/23/18 23:25 AST 9 U/L (13-39) L 10/23/18 23:25 ALT 10 U/L (7-52) 10/23/18 23:25 Alkaline Phosphatase 51 U/L (34-104) 10/23/18 23:25 Total Protein 6.3 gm/dL (6.0-8.3) 10/23/18 23:25 Albumin 3.6 gm/dL (3.7-5.3) L 10/23/18 23:25 Globulin 2.7 gm/dL 10/23/18 23:25 Albumin/Globulin Ratio 1.3 (1.0-1.8) 10/23/18 23:25 Triglycerides 73 mg/dL (<150) 10/24/18 01:45 Cholesterol 178 mg/dL (<200) 10/24/18 01:45 LDL Cholesterol Direct 88 mg/dL (75-193) 10/24/18 01:45 HDL Cholesterol 74 mg/dL (23-92) 10/24/18 01:45 - Physical Exam Vitals and I&O: Vital Signs Temp 0 F 11/04/18 06:22 Pulse 78 10/31/18 14:00 Resp 19 11/03/18 08:00 BP 136/68 10/31/18 14:00 Pulse Ox 98 10/31/18 14:00 Intake & Output 11/03/18 11/04/18 11/04/18 18:59 06:59 18:59 Intake Total 900 120 Balance 900 120 Intake: Oral 900 120 Other: # Voids 3 3 # Bowel Movements 0 0 Active Medications: Current Medications Acetaminophen (Tylenol) 650 mg PO Q4HR PRN PRN Reason: Mild Pain or Fever >101 Stop: 12/23/18 01:39 Acetaminophen (Tylenol Extra Strength) 1,000 mg PO Q4HR PRN PRN Reason: Pain (Moderate) Stop: 12/23/18 01:39 Benztropine Mesylate (Cogentin) 3 mg PO DAILY [facility] Stop: 12/23/18 08:59 Last Admin: 11/03/18 08:45 Dose: Not Given Calcium/Vitamin D (Oscal W/Vitamin D) 1 tab PO BID [facility] Stop: 12/23/18 08:59 Last Admin: 11/03/18 17:31 Dose: Not Given Divalproex Sodium (Depakote Sprinkle) 375 mg PO BID [facility]; Protocol Stop: 12/23/18 08:59 Last Admin: 11/03/18 17:32 Dose: Not Given Docusate Sodium (Colace) 250 mg PO DAILY [facility] Stop: 12/23/18 08:59 Last Admin: 11/03/18 08:45 Dose: Not Given Ferrous Sulfate (Iron) 325 mg PO BID [facility] Stop: 12/23/18 08:59 Last Admin: 11/03/18 17:32 Dose: Not Given Fluphenazine Decanoate (Prolixin Deconate) 25 mg IM [id number] [facility]; Protocol Stop: 12/31/18 08:44 Last Admin: 11/01/18 09:59 Dose: 25 mg Fluphenazine HCl (Prolixin) 10 mg IM HS [facility]; Protocol Stop: 12/28/18 20:59 Last Admin: 11/03/18 21:35 Dose: Not Given Lamotrigine (Lamictal) 25 mg PO DAILY [facility]; Protocol Stop: 12/23/18 08:59 Last Admin: 11/03/18 08:45 Dose: Not Given Metoprolol Tartrate (Lopressor) 50 mg PO DAILY [facility] Stop: 12/23/18 08:59 Last Admin: 11/03/18 08:45 Dose: Not Given General: weak, demented, other (awake, non-verbal) HEENT: NC/AT Neck: Supple, No JVD Lungs: other (no acute respiratory distress) Cardiovascular: Normal S1, Normal S2 Abdomen: soft, non-tender Extremities: clear Neurological: other (Altered mental status.) - Procedures Procedures: Procedures Procedure Code Date OTHER GROUP THERAPY 94.44 03/02/10 RECREATIONAL THERAPY 93.81 03/02/10 Internal Medicine Assmt/Plan - Assessment Assessment: #Psychosis #Dementia #HTN #OA #Iron deficiency Anemia - Plan Plan: CPM Nutritional Asmnt/Malnutr-PDOC - Dietary Evaluation Malnutrition Findings (Please click <Entered> for more info): Nutritional Asmnt/Malnutrition Start: 10/29/18 16: 03 Text: Status: Active Freq: Protocol: Document 10/29/18 16:03 MBONUS (Rec: 10/29/18 16:09 [email or web address]) Nutritional Asmnt/Malnutrition Patient General Information Nutritional Screening Moderate Risk Diagnosis PSYCHOSIS, NOS Pertinent Medical Hx/Surgical Hx HTN, DM, DEMENTIA, ATHRITUS, YTI, BIPOLAR PSYCHOSIS, SEIZURES Subjective Information PT SEEN LYING DOWN ON BED AT TIME FO VISIT. PT IS CONFUSED AND UNABLE TO ANSWER QUESTIONS . PER CNC MILL OPERATOR (ELLIOT), PT REFUSED TO EAT BREAKFAST AND LUNCH BUT DRINK WATER ONLY. NO FOOD TEXTURE CONCERN REPORTED. OFFERED OPTION ON ORAL SUPPLEMENT, MAY CONSIDER ENSURE TID IF PO INTAKE DOES NOT IMPROVE IN 3-5 DAYS MODERATE RISK INITIAL NUTRITION SCREENING FOR BRANDO SCORE 17. PATIENT IS A 88 Y/O FEMALE ADMITTED ON 10/24/2018 WITH PSYCHOSIS, NOS. BMI: 25.0 KG/M2 (OVERWEIGHT) IBW: 56.8 KG %IBW: 120% CURRENT DIET: 2 GRAM NA, CHOPPED BRANDO SCORE: 17 SKIN: INTACT LAST BM: 10/26 X 1 ESTIMATED NEEDS ARE BASED ON ACTUAL BODY WEIGHT 68 KG FOR WEIGHT MAINTENANCE. CALORIES: 1394-8235 KCAL/DAY ( 25-30 KCAL/KG) PROTEIN: 54-68 GM PRO/DAY (0.8 -1 G/KG) FLUID: 1966-9839 ML/DAY (1 ML/ KCAL) Current Diet Order/ Nutrition Support 2 GRAM NA, CHOPPED Pertinent Medications OSCAL W/VIT D, COLACE, IRON, PROLIXIN, LOPRESSOR Pertinent Labs 10/23 BUN 31, ALB 3.6 Nutritional Hx/Data Height 5 ft 5 in Height (Calculated Centimeters) 165.1 Current Weight (lbs) 150 lb Weight (Calculated Kilograms) 68.0 Weight (Calculated Grams) 62172.9 [place] Body Weight 56.8 % [place] Body Weight 120 Body Mass Index (BMI) 25.0 Weight Status Overweight GI Symptoms GI Symptoms None Last BM 10/26 Difficult in: None Skin Integrity/Comment: BRANDO Bailey, SKIN INTACT Current %PO Negligible < 25% Estimated Nutritional Goals BEE in Kcals: Using Current wt Calories/Kcals/Kg 25-30 Kcals Calculated 9146-4743 Protein: Using Current wt Protein g/k.8-1 Protein Calculated 54-68 Fluid: ml 1.7-2 L/DAY (1 ML/KCAL) Nutritional Problem 1. Problem Problem INADEQUATE ORAL INTAKE Etiology LOW APPETITE Signs/Symptoms: PO INTAKE 0% ON 10/28 Intervention/Recommendation Comments 1. Continue with 2 gram NA diet with chopped texture as ordered. Will add Ensure clear in dinner to increase oral intake if po intake does not improve 2. Monitor PO intake, wt, labs and skin integrity RD TO FOLLOW-UP IN 3-5 DAYS PATIENT IS MODERATE RISK. Expected Outcomes/Goals Expected Outcomes/Goals PT TO CONSUME 75-100% NUTRIENT NEEDS DAILY RD TO F/UP IN 3-5 DAYS, MONITOR INTAKE, WEIGHT, SKIN INTEGRITY, LABS DIETITIAN WILL MONITOR PO INTAKE, NUTRITION-RELATED LABS TRENDING WNL, SKIN INTEGRITY, WEIGHTS, GI FUNCTION. DISCHARGE PLAN:PATIENT SHOULD BE ABLE TO CONTINUE WITH CURRENT DIET UPON DISCHARGE. [address]EM[address]
--- NOTE | 2018-11-04 14:18 | Discharge Summary ---
DATE OF DISCHARGE: 11/04/2018 REASON FOR ADMISSION: The patient was admitted for exacerbation of her schizophrenia. HISTORY OF PRESENT ILLNESS: The patient is a resident of [facility]. The patient has been followed by this doctor for a long time. On the day of admission, the staff requested inpatient treatment because the patient has exacerbation of her psychosis. Upon interview, the patient did not make any sense. The patient has pressured speech with disorganized thoughts, unable to obtain much information from the patient at that time. HOSPITAL COURSE: After admission, the patient was started on regular Prolixin IM for 7 days due to the fact that the patient has been refusing to take her p.o. medications. The patient responded to Prolixin with improvement of her thought process. The patient is more coherent. Her speech was not rambling like the way she was upon admission. However, the patient continued to be uncooperative with treatment. The patient continued to refuse to take her p.o. medications. The patient continued to be delusional. The patient would call staff and this card writer hand "Grace". The patient would state that this card writer hand is not her doctor. The patient would state that this is the doctor at the other hospital and on most occasions, the patient would not respond to any question. On the day of discharge, the patient was eating breakfast in the dining room, but refused to answer any questions. The staff reported that the patient continued to refuse her p.o. medications. However, the patient was cooperative enough to get up in the [place] chair and have breakfast in the dining room. DISCHARGE MEDICATIONS: We will continue the patient on Tylenol, Cogentin 3 mg daily, [place] with vitamin D, Depakote Sprinkle 375 mg b.i.d., Colace, ferrous sulfate, Prolixin Decanoate 25 mg IM every 14 days, Lamictal 25 mg daily, Lopressor. LABORATORY REPORT UPON ADMISSION: Abnormal lab results to include RBC of 3.50, hemoglobin 10.9, hematocrit 32.5. There is a slightly low MCH of 31.1, slightly elevated BUN 31, slightly elevated total bilirubin 0.2, AST 9, albumin 3.6, this is slightly low. CONDITION AT THE TIME OF DISCHARGE: The patient was discharged in somewhat improved condition with less psychotic symptoms; however, the patient continued to be uncooperative with taking her p.o. medications. DIAGNOSTIC IMPRESSION: AXIS I: 1. Schizophrenia, chronic paranoid type. 2. 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 3. Impulse control disorder, not otherwise specified. 4. Personality change due to medical condition. AXIS II: Deferred. AXIS III: Polyosteoarthritis, essential hypertension, dysphagia, peripheral vascular disease. AXIS IV: Medical and mental illnesses. AXIS V: Current 15, past year 25. JOB# [id number] [facility]
--- NOTE | 2018-11-04 20:42 | Progress Notes ---
DATE: 11/04/2018 PSYCHOLOGY PROGRESS NOTE. SUBJECTIVE: The patient is seen and is interviewed. Case is discussed with staff. The patient presents as guarded and suspicious. The patient is not making much sense. The patient continues to refuse to take her p.o. medications. The attending psychiatrist has been monitoring the patient on Prolixin IM. The patient continues to not offer much information and did not respond to the therapeutic interaction. OBJECTIVE: Mood is irritable. Affect is blunted. Thought process shows to be disorganized. The patient continues to have paranoid delusions; however, the patient most likely is approaching baseline. The patient did not answer questions about suicidal ideation, plan or intention. She did not answer the questions about experiencing auditory or visual hallucinations. The patient continues to refuse p.o. medication. The patient did eat breakfast this morning. ASSESSMENT AND PLAN: The patient's psychosis persists; however, this is perhaps approaching baseline. The attending psychiatrist has ordered discharge today and the patient is scheduled to return to her placement. We provided remotivation for the patient to become compliant and stay compliant with her care and treatment. We provided coping strategies for phase of life issues and for chronic severe mental illness. We encouraged the patient to verbalize her concerns and to follow through with staff direction at her facility. There is no followup indicated as the patient is scheduled to discharge today. [facility]# [id number] CANDACE
== END 2018-11-04 13:10 | DRG 885 ==
LOC: ER 22:48 → GERO 10-24 01:03
PROVIDERS: ADMIT Psychiatry & Neurology Psychiatry; ATTEND Psychiatry & Neurology Psychiatry
DX: F20.0 Paranoid schizophrenia (principal); F02.81 Dementia in other diseases classified elsewhere, unspecified severity, with behavioral disturbance; I10 Essential (primary) hypertension; M19.90 Unspecified osteoarthritis, unspecified site; D50.9 Iron deficiency anemia, unspecified; E11.9 Type 2 diabetes mellitus without complications; E11.51 Type 2 diabetes mellitus with diabetic peripheral angiopathy without gangrene; R56.9 Unspecified convulsions; F29 Unspecified psychosis not due to a substance or known physiological condition; R13.10 Dysphagia, unspecified; G30.9 Alzheimer's disease, unspecified; F63.9 Impulse disorder, unspecified
CPT/HCPCS: 36415-UA; 80053-TC; 80061-TC; 83036-90; 85025-TC; J1100; X6222; Z7610